=== PATIENT | female | born 1940 | race Caucasian/White ===

== ENCOUNTER 2016-10-26 23:27 | Inpatient (IN) ==
--- NOTE | 2016-10-26 23:30 | Emergency Department Note ---
Disposition Clinical Impression: RUQ abdominal pain, Acute cholecystitis Disposition: Admitted As Inpatient Condition: Fair General Adult HPI - General Chief complaint: ED Abdominal Pain Stated complaint: RUQ abd pain rad into back Time Seen by Provider: 10/26/16 23:29 - Related Data Home Medications Medication Instructions Recorded Confirmed Lisinopril [Zestril] 20 mg PO DAILY 10/27/16 10/27/16 raNITIdine HCl [Ranitidine HCl] 10/27/16 Allergies Allergy/AdvReac Type Severity Reaction Status Date / Time No Known Allergies Allergy Verified 10/26/16 23:34 Past Medical History - Past Medical History Medical history: Reports: arthritis, cancer, CHF, hyperlipidemia, hypertension Surgical history: Reports: hysterectomy Psychiatric history: Reports: no psych history - Social History Smoking Status: Never smoker Smokeless Tobacco Status: No Alcohol use: Reports: none Drug use: Reports: none Course Vital Signs Temperature 98.8 F 10/26/16 23:35 Pulse Rate 95 10/26/16 23:35 Respiratory Rate 20 10/26/16 23:35 Blood Pressure 232/96 10/26/16 23:35 O2 Sat by Pulse Oximetry 95 10/26/16 23:35 Temperature 98.8 F 10/27/16 02:50 Pulse Rate 83 10/27/16 05:43 Respiratory Rate 24 10/27/16 02:50 Blood Pressure 173/79 10/27/16 05:43 O2 Sat by Pulse Oximetry 92 10/27/16 02:50 Oxygen Delivery Oxygen Delivery Room Air Medical Decision Making - Lab Data Result diagrams: 10/26/16 23:53 10/26/16 23:53 Lab Results 10/26/16 10/26/16 10/26/16 Range/Units 23:53 23:53 23:53 WBC 13.3 H (4.3-11.1) K/mcL RBC 5.22 H (3.82-4.97) M/mcL Hgb 15.9 H (11.5-15.4) g/dL Hct 47.5 H (35.3-44.9) % MCV 91.0 (83.0-100.0) fL MCH 30.5 (28.0-33.3) pg MCHC 33.5 (31.6-35.5) g/dL RDW 12.5 (11.5-14.5) % Plt Count 207 (140-400) K/mcL MPV 9.8 (9.4-12.4) fL Immature Gran % 0.5 (0-4) % Seg Neutrophils % 83.6 % Lymphocytes % 10.2 % Monocytes % 5.4 % Eosinophils % 0.1 % Basophils % 0.2 % Neutrophils # 11.1 H (1.6-8.9) K/mcL Lymphocytes # 1.4 (0.6-4.6) K/mcL Monocytes # 0.7 (0.0-1.3) K/mcL Eosinophils # 0.0 (0.0-0.6) K/mcL Basophils # 0.0 (0.0-0.2) K/mcL Immature Plt Fraction 3.4 (1.1-6.1) % Sodium 135 L (136-145) mEq/L Potassium 4.3 (3.5-4.5) mEq/L Chloride 99 (98-109) mEq/L Carbon Dioxide 24 (19-29) mEq/L BUN 12 (7-20) mg/dL Creatinine 0.79 (0.57-1.11) mg/dL Est GFR ( Amer) > 60 (> 60) Est GFR (Non-Af Amer) > 60 (> 60) BUN/Creatinine Ratio 15 (6-26) Glucose 172 H (70-99) mg/dL Calculated Osmolality 284 (280-300) Calcium 10.1 (8.6-10.8) mg/dL Total Bilirubin 0.9 (0.2-1.2) mg/dL Direct Bilirubin 0.3 (0.0-0.5) mg/dL Indirect Bilirubin 0.6 (0.0-1.2) mg/dL AST 19 (5-34) Units/L ALT 17 (0-55) Units/L Alkaline Phosphatase 72 (38-126) Units/L Troponin I 0.01 (0-0.03) ng/mL Serum Total Protein 7.9 (6.0-8.3) g/dL Albumin 3.9 (3.5-5.0) g/dL Globulin 4.0 H (2.4-3.5) g/dL Albumin/Globulin Ratio 1.0 L (1.1-2.2) Lipase 15 (8-78) Units/L Urine Color (Yellow) Urine Clarity (Clear) Urine pH (5.0-8.0) pH Units Ur Specific [place] (1.010-1.025) Urine Protein (Neg-Trace) mg/dL Urine Glucose (UA) (Normal) mg/dL Urine Ketones (Negative) mg/dL Urine Blood (Negative) Urine Nitrite (Negative) Urine Bilirubin (Negative) Urine Urobilinogen (Normal) mg/dL Ur Leukocyte Esterase (Negative) Urine Microscopic RBC (0-3) per hpf Urine Microscopic WBC (0-3) per hpf Ur Squamous Epith Cells (None-Few) per lpf Urine Bacteria (None-Few) per hpf Hyaline Casts (None-Few) per lpf Ur Culture Indicated? (NO) 10/27/16 Range/Units 00:20 WBC (4.3-11.1) K/mcL RBC (3.82-4.97) M/mcL Hgb (11.5-15.4) g/dL Hct (35.3-44.9) % MCV (83.0-100.0) fL MCH (28.0-33.3) pg MCHC (31.6-35.5) g/dL RDW (11.5-14.5) % Plt Count (140-400) K/mcL MPV (9.4-12.4) fL Immature Gran % (0-4) % Seg Neutrophils % % Lymphocytes % % Monocytes % % Eosinophils % % Basophils % % Neutrophils # (1.6-8.9) K/mcL Lymphocytes # (0.6-4.6) K/mcL Monocytes # (0.0-1.3) K/mcL Eosinophils # (0.0-0.6) K/mcL Basophils # (0.0-0.2) K/mcL Immature Plt Fraction (1.1-6.1) % Sodium (136-145) mEq/L Potassium (3.5-4.5) mEq/L Chloride (98-109) mEq/L Carbon Dioxide (19-29) mEq/L BUN (7-20) mg/dL Creatinine (0.57-1.11) mg/dL Est GFR ( Amer) (> 60) Est GFR (Non-Af Amer) (> 60) BUN/Creatinine Ratio (6-26) Glucose (70-99) mg/dL Calculated Osmolality (280-300) Calcium (8.6-10.8) mg/dL Total Bilirubin (0.2-1.2) mg/dL Direct Bilirubin (0.0-0.5) mg/dL Indirect Bilirubin (0.0-1.2) mg/dL AST (5-34) Units/L ALT (0-55) Units/L Alkaline Phosphatase (38-126) Units/L Troponin I (0-0.03) ng/mL Serum Total Protein (6.0-8.3) g/dL Albumin (3.5-5.0) g/dL Globulin (2.4-3.5) g/dL Albumin/Globulin Ratio (1.1-2.2) Lipase (8-78) Units/L Urine Color Yellow (Yellow) Urine Clarity Clear (Clear) Urine pH 6.5 (5.0-8.0) pH Units Ur Specific [place] 1.022 (1.010-1.025) Urine Protein 100 H (Neg-Trace) mg/dL Urine Glucose (UA) Normal (Normal) mg/dL Urine Ketones Trace H (Negative) mg/dL Urine Blood Negative (Negative) Urine Nitrite Negative (Negative) Urine Bilirubin Negative (Negative) Urine Urobilinogen Normal (Normal) mg/dL Ur Leukocyte Esterase Negative (Negative) Urine Microscopic RBC 0-3 (0-3) per hpf Urine Microscopic WBC 0-3 (0-3) per hpf Ur Squamous Epith Cells Many H (None-Few) per lpf Urine Bacteria Few (None-Few) per hpf Hyaline Casts None Seen (None-Few) per lpf Ur Culture Indicated? NO (NO) Attestation Statement - Attestation Attestation: I examined this patient and my medical decision-making was reviewed with the [employer]/PA/Advanced Practice Nurse/Resident Physician. I agree with the documented findings, disposition and treatment plan as described except to the extent set forth below. [id number] time provided presents with right upper quadrant abdominal pain. Pain present for 2 days. Patient is cantankerous on exam. She was initially complaining about the bumpiness of the ambulance ride. Appears in no acute distress on exam
[2016-10-26] MEDS ORDERED: Ondansetron ODT 4 MG TAB.RAPDIS SL ONE (23:44)
--- NOTE | 2016-10-26 23:48 | Emergency Department Note ---
Disposition Clinical Impression: RUQ abdominal pain, Acute cholecystitis Disposition: Admitted As Inpatient Condition: Good Referrals: Shantanu Lu MD [Primary Care Provider] - Forms: ED Satisfaction Letter, Work/School Release Abdominal Pain HPI - General Chief Complaint: ED Abdominal Pain Stated Complaint: RUQ abd pain rad into back Time Seen by Provider: 10/26/16 23:29 Source: patient, EMS Nursing Notes Reviewed: Yes Vital Signs Reviewed: Yes - History of Present Illness HPI Narrative: 76-year-old female with a history of hypertension and previous cervical cancer with hysterectomy presents to the emergency department with a chief complaint of abdominal pain. She states it is in the right upper quadrant and radiates around the right side. She states that eating makes it worse. She was having symptoms after eating for the last 3 or 4 days but today it worsened. She has had no vomiting. She has had no diarrhea or blood in the stool. She has had no fevers or chills. Patient states she ate fried perch the other day and it made her symptoms worse. She has never had a cholecystectomy. She denies any chest pain or shortness of breath. Denies any new swelling in lower extremities. Denies any lightheadedness or passing out. Pain Scale: 10 - Related Data Home Medications Medication Instructions Recorded Confirmed Amiodarone [Cordarone] 200 mg PO DAILY 10/10/15 10/10/15 Aspirin 81 mg PO DAILY 10/10/15 10/10/15 LORazepam 10 mg PO DAILY PRN 10/10/15 10/10/15 Lisinopril 20 mg PO DAILY 10/10/15 10/10/15 Metoprolol 100 tab PO DAILY 10/10/15 10/10/15 Ranitidine 75 mg PO DAILY 10/10/15 10/10/15 Previous Rx's Medication Instructions Recorded Albuterol Sulfate [Ventolin Hfa] 18 gm IH Q4HR PRN #1 [email or web address] 10/11/15 Furosemide [Lasix] 20 mg PO DAILY #30 tablet 10/11/15 Allergies Allergy/AdvReac Type Severity Reaction Status Date / Time No Known Allergies Allergy Verified 10/26/16 23:34 All systems ED: reviewed and negative except as stated. Constitutional: Denies: fever, chills Cardiovascular: Denies: chest pain Respiratory: Denies: cough, dyspnea Gastrointestinal: Reports: abdominal pain, nausea. 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 S1, S2. No murmurs, rubs or gallops. Respiratory: Breath sounds clear bilaterally. No wheezing, rales or rhonchi. No resp distress Abdomen: Abdomen is soft without any guarding, rebound or rigidity. She does have some right upper quadrant tenderness as well as the right lateral abdomen but negative Cavazos sign. No focal right lower quadrant tenderness. No other tenderness elicited on examination without distention. Normal bowel sounds throughout. No overlying signs of injury. Previous midline surgical incision. No palpable organomegaly. Eyes: Left chronically injured eye, right eye is unremarkable HENT: Moist mucous membranes Neuro: Alert and oriented 3, no motor or sensory deficits Musculoskeletal: Bilateral, symmetric lower extremity swelling without edema. No calf tenderness. No signs of infection. Skin: No lesions. No diaphoresis. Normal turgor. Normal color Psych: Appropriate - General Limitations: no limitations General appearance: alert Course Course Narrative: Presents with 3-4 days of intermittent right upper quadrant abdominal pain that worsened today. On exam she has right upper quadrant tenderness without positive Cavazos sign. She is afebrile with stable vital signs. Labs reveal leukocytosis at 13.5. No elevation herpetic or lipase. CT scan shows some pericholecystic edema/swelling consistent with possible acute cholecystitis. This was relatively abrupt in symptomatology and may be early. Patient having significant discomfort. I discussed with the on-call surgeon, Dr. Horne who agrees to admit the patient. We will treat her symptoms in the meantime and she will be examined and reevaluated by the surgeon in the morning. Will start antibiotics. Patient will remain nothing by mouth with IV fluid maintenance rate. Vital Signs Temperature 98.8 F 10/26/16 23:35 Pulse Rate 95 10/26/16 23:35 Respiratory Rate 20 10/26/16 23:35 Blood Pressure 232/96 10/26/16 23:35 O2 Sat by Pulse Oximetry 95 10/26/16 23:35 Temperature 98.8 F 10/26/16 23:35 Pulse Rate 87 10/27/16 00:31 Respiratory Rate 20 10/27/16 00:31 Blood Pressure 211/90 10/27/16 00:31 O2 Sat by Pulse Oximetry 94 10/27/16 00:31 Oxygen Delivery Oxygen Delivery Room Air Abdominal Pain - Lab Data Result diagrams: 10/26/16 23:53 10/26/16 23:53 Lab Results 10/26/16 10/26/16 10/26/16 Range/Units 23:53 23:53 23:53 WBC 13.3 H (4.3-11.1) K/mcL RBC 5.22 H (3.82-4.97) M/mcL Hgb 15.9 H (11.5-15.4) g/dL Hct 47.5 H (35.3-44.9) % MCV 91.0 (83.0-100.0) fL MCH 30.5 (28.0-33.3) pg MCHC 33.5 (31.6-35.5) g/dL RDW 12.5 (11.5-14.5) % Plt Count 207 (140-400) K/mcL MPV 9.8 (9.4-12.4) fL Immature Gran % 0.5 (0-4) % Seg Neutrophils % 83.6 % Lymphocytes % 10.2 % Monocytes % 5.4 % Eosinophils % 0.1 % Basophils % 0.2 % Neutrophils # 11.1 H (1.6-8.9) K/mcL Lymphocytes # 1.4 (0.6-4.6) K/mcL Monocytes # 0.7 (0.0-1.3) K/mcL Eosinophils # 0.0 (0.0-0.6) K/mcL Basophils # 0.0 (0.0-0.2) K/mcL Immature Plt Fraction 3.4 (1.1-6.1) % Sodium 135 L (136-145) mEq/L Potassium 4.3 (3.5-4.5) mEq/L Chloride 99 (98-109) mEq/L Carbon Dioxide 24 (19-29) mEq/L BUN 12 (7-20) mg/dL Creatinine 0.79 (0.57-1.11) mg/dL Est GFR ( Amer) > 60 (> 60) Est GFR (Non-Af Amer) > 60 (> 60) BUN/Creatinine Ratio 15 (6-26) Glucose 172 H (70-99) mg/dL Calculated Osmolality 284 (280-300) Calcium 10.1 (8.6-10.8) mg/dL Total Bilirubin 0.9 (0.2-1.2) mg/dL Direct Bilirubin 0.3 (0.0-0.5) mg/dL Indirect Bilirubin 0.6 (0.0-1.2) mg/dL AST 19 (5-34) Units/L ALT 17 (0-55) Units/L Alkaline Phosphatase 72 (38-126) Units/L Troponin I 0.01 (0-0.03) ng/mL Serum Total Protein 7.9 (6.0-8.3) g/dL Albumin 3.9 (3.5-5.0) g/dL Globulin 4.0 H (2.4-3.5) g/dL Albumin/Globulin Ratio 1.0 L (1.1-2.2) Lipase 15 (8-78) Units/L Urine Color (Yellow) Urine Clarity (Clear) Urine pH (5.0-8.0) pH Units Ur Specific [place] (1.010-1.025) Urine Protein (Neg-Trace) mg/dL Urine Glucose (UA) (Normal) mg/dL Urine Ketones (Negative) mg/dL Urine Blood (Negative) Urine Nitrite (Negative) Urine Bilirubin (Negative) Urine Urobilinogen (Normal) mg/dL Ur Leukocyte Esterase (Negative) Urine Microscopic RBC (0-3) per hpf Urine Microscopic WBC (0-3) per hpf Ur Squamous Epith Cells (None-Few) per lpf Urine Bacteria (None-Few) per hpf Hyaline Casts (None-Few) per lpf Ur Culture Indicated? (NO) 10/27/16 Range/Units 00:20 WBC (4.3-11.1) K/mcL RBC (3.82-4.97) M/mcL Hgb (11.5-15.4) g/dL Hct (35.3-44.9) % MCV (83.0-100.0) fL MCH (28.0-33.3) pg MCHC (31.6-35.5) g/dL RDW (11.5-14.5) % Plt Count (140-400) K/mcL MPV (9.4-12.4) fL Immature Gran % (0-4) % Seg Neutrophils % % Lymphocytes % % Monocytes % % Eosinophils % % Basophils % % Neutrophils # (1.6-8.9) K/mcL Lymphocytes # (0.6-4.6) K/mcL Monocytes # (0.0-1.3) K/mcL Eosinophils # (0.0-0.6) K/mcL Basophils # (0.0-0.2) K/mcL Immature Plt Fraction (1.1-6.1) % Sodium (136-145) mEq/L Potassium (3.5-4.5) mEq/L Chloride (98-109) mEq/L Carbon Dioxide (19-29) mEq/L BUN (7-20) mg/dL Creatinine (0.57-1.11) mg/dL Est GFR ( Amer) (> 60) Est GFR (Non-Af Amer) (> 60) BUN/Creatinine Ratio (6-26) Glucose (70-99) mg/dL Calculated Osmolality (280-300) Calcium (8.6-10.8) mg/dL Total Bilirubin (0.2-1.2) mg/dL Direct Bilirubin (0.0-0.5) mg/dL Indirect Bilirubin (0.0-1.2) mg/dL AST (5-34) Units/L ALT (0-55) Units/L Alkaline Phosphatase (38-126) Units/L Troponin I (0-0.03) ng/mL Serum Total Protein (6.0-8.3) g/dL Albumin (3.5-5.0) g/dL Globulin (2.4-3.5) g/dL Albumin/Globulin Ratio (1.1-2.2) Lipase (8-78) Units/L Urine Color Yellow (Yellow) Urine Clarity Clear (Clear) Urine pH 6.5 (5.0-8.0) pH Units Ur Specific [place] 1.022 (1.010-1.025) Urine Protein 100 H (Neg-Trace) mg/dL Urine Glucose (UA) Normal (Normal) mg/dL Urine Ketones Trace H (Negative) mg/dL Urine Blood Negative (Negative) Urine Nitrite Negative (Negative) Urine Bilirubin Negative (Negative) Urine Urobilinogen Normal (Normal) mg/dL Ur Leukocyte Esterase Negative (Negative) Urine Microscopic RBC 0-3 (0-3) per hpf Urine Microscopic WBC 0-3 (0-3) per hpf Ur Squamous Epith Cells Many H (None-Few) per lpf Urine Bacteria Few (None-Few) per hpf Hyaline Casts None Seen (None-Few) per lpf Ur Culture Indicated? NO (NO) - EKG Data EKG results narrative: EKG shows sinus tachycardia with a rate of [address] elevation. Mild ST depression, less than 1 mm in precordial leads. T-wave inversion in 1 and aVL..
[2016-10-27 00:02] LABS: Basophils % 0.2 %; Eosinophils % 0.1 %; Hematocrit 47.5 % (35.3-44.9); Hemoglobin 15.9 g/dL (11.5-15.4); Immature Granulocytes % 0.5 % (0-4); Immature Platelets 3.4 % (1.1-6.1); Lymphocytes # 1.4 K/mcL (0.6-4.6); Lymphocytes % 10.2 %; Mean Corpuscular HGB Conc 33.5 g/dL (31.6-35.5); Mean Corpuscular Hemoglobin 30.5 pg (28.0-33.3); Mean Platelet Volume 9.8 fL (9.4-12.4); Monocytes # 0.7 K/mcL (0.0-1.3); Monocytes % 5.4 %; Neutrophils # 11.1 K/mcL (1.6-8.9); Platelet Count 207 K/mcL (140-400); Red Blood Count 5.22 M/mcL (3.82-4.97); Red Cell Distribution Width 12.5 % (11.5-14.5); Segmented Neutrophils % 83.6 %
[2016-10-27 00:17] LABS: Alanine Aminotransferase 17 Units/L (0-55); Albumin 3.9 g/dL (3.5-5.0); Alkaline Phosphatase 72 Units/L (38-126); Aspartate Amino Transferase 19 Units/L (5-34); BUN/Creatinine Ratio 15 (6-26); Bilirubin,Direct 0.3 mg/dL (0.0-0.5); Bilirubin,Indirect 0.6 mg/dL (0.0-1.2); Bilirubin,Total 0.9 mg/dL (0.2-1.2); Blood Urea Nitrogen 12 mg/dL (7-20); Calcium 10.1 mg/dL (8.6-10.8); Carbon Dioxide 24 mEq/L (19-29); Chloride 99 mEq/L (98-109); Glucose 172 mg/dL (70-99); Lipase 15 Units/L (8-78); Osmolality,Calculated 284 (280-300); Potassium 4.3 mEq/L (3.5-4.5); Sodium 135 mEq/L (136-145); Total Protein 7.9 g/dL (6.0-8.3); eGFR For African Americans > 60 (> 60); eGFR For Non-African Americans > 60 (> 60)
[2016-10-27 00:37] LABS: Bilirubin,Urine Negative (Negative); Blood,Urine Negative (Negative); Clarity,Urine Clear (Clear); Color,Urine Yellow (Yellow); Glucose,Urine (UA) Normal (Normal); Ketones,Urine Trace mg/dL (Negative); Leukocyte Esterase,Urine Negative (Negative); Nitrite,Urine Negative (Negative); PH,Urine 6.5 pH Units (5.0-8.0); Protein,Urine 100 mg/dL (Neg-Trace); Specific Gravity,Urine 1.022 (1.010-1.025); Urobilinogen,Urine Normal (Normal)
[2016-10-27 00:38] LABS: Bacteria,Urine Few per hpf (None-Few); Hyaline Casts,Urine None Seen per lpf (None-Few); RBC,Urine 0-3 per hpf (0-3); Squamous Epithelial Cell,Urine Many per lpf (None-Few); WBC,Urine 0-3 per hpf (0-3)
[2016-10-27] MEDS ORDERED: *HR* HYDROmorphone (PF) 1 MG/ML SYRINGE IVP ONE (01:34)
[2016-10-27] MEDS ORDERED: Ondansetron 4 MG/2 ML VIAL IVP STA (01:34)
[2016-10-27] MEDS ORDERED: 0.9 % Sodium Chloride 1,000 ML IVC SCH ×2 (01:45→05:09)
[2016-10-27] MEDS ORDERED: Ondansetron 4 MG/2 ML VIAL IVP PRN (05:06)
[2016-10-27] MEDS ORDERED: Lisinopril 20 MG TABLET PO SCH (05:15)
[2016-10-27] MEDS: *HR* Morphine 2 MG/ML SYRINGE IVP PRN ×2 (05:45→09:12)
[2016-10-27 08:14] LABS: Basophils % 0.1 %; Hematocrit 45.3 % (35.3-44.9); Immature Granulocytes % 0.4 % (0-4); Lymphocytes # 1.4 K/mcL (0.6-4.6); Lymphocytes % 9.4 %; Mean Corpuscular HGB Conc 33.1 g/dL (31.6-35.5); Mean Corpuscular Hemoglobin 30.5 pg (28.0-33.3); Mean Corpuscular Volume 92.1 fL (83.0-100.0); Monocytes # 1.3 K/mcL (0.0-1.3); Monocytes % 8.7 %; Platelet Count 186 K/mcL (140-400); Red Blood Count 4.92 M/mcL (3.82-4.97); Red Cell Distribution Width 12.7 % (11.5-14.5); Segmented Neutrophils % 81.4 %
[2016-10-27 08:27] LABS: Alanine Aminotransferase 13 Units/L (0-55); Albumin 3.5 g/dL (3.5-5.0); Albumin/Globulin Ratio 0.9 (1.1-2.2); Alkaline Phosphatase 61 Units/L (38-126); Aspartate Amino Transferase 15 Units/L (5-34); BUN/Creatinine Ratio 17 (6-26); Bilirubin,Direct 0.2 mg/dL (0.0-0.5); Bilirubin,Indirect 0.5 mg/dL (0.0-1.2); Bilirubin,Total 0.7 mg/dL (0.2-1.2); Blood Urea Nitrogen 12 mg/dL (7-20); Calcium 9.7 mg/dL (8.6-10.8); Carbon Dioxide 27 mEq/L (19-29); Chloride 99 mEq/L (98-109); Globulin 3.9 g/dL (2.4-3.5); Glucose 125 mg/dL (70-99); Osmolality,Calculated 281 (280-300); Potassium 4.4 mEq/L (3.5-4.5); Sodium 135 mEq/L (136-145); Total Protein 7.4 g/dL (6.0-8.3); eGFR For African Americans > 60 (> 60); eGFR For Non-African Americans > 60 (> 60)
[2016-10-27] MEDS ORDERED: Naloxone 0.4 MG/ML INJ IVP PRN ×2 (08:40→18:35)
[2016-10-27] MEDS ORDERED: Pantoprazole 40 MG VIAL IVP SCH (09:00)
[2016-10-27] MEDS: cefOXitin 2,000 MG in D5% in Water (Mini-Bag+) 100 ML IVPB SCH ×3 (09:09→23:36)
--- NOTE | 2016-10-27 09:47 | General Surg History&Physical ---
<Michela Lloyd - Last Filed: 10/27/16 09:42> Date of Encounter: 10/27/16 Time of Encounter: 09:43 Assessment and Plan (1) Acute cholecystitis Current Visit: Yes Status: Acute Patient presents with 3-4 days of right upper quadrant abdominal pain that radiates to the back. It has worsened yesterday. She has an elevated white count at 14.7 with a left shift. CT of the abdomen shows small gallstones or gallbladder sludge, slight pericholecystic edema, findings suggest possible cholecystitis. Abdomen is soft, nondistended with tenderness to palpation of the right upper quadrant. Bowel sounds are present. Patient complains of nausea and 10/10 pain, denies any other complaints. Plan: -Keep NPO -Cholecystectomy later today -IVF, Mefoxin 2gm q8hrs, Protonix, Zofran, morphine -Monitor I/Os -IS q1hr when awake -VS q4hr -AM labs The assessment and plan as outlined above was discussed with the patient and/or family members who expressed understanding and agreement. All questions were answered. (2) Adrenal nodule Current Visit: Yes Status: Acute CT of the abdomen revealed a 2 cm right adrenal lesion of indeterminate cause. A repeat assessment with adrenal protocol is recommended in approximately 12 months to assess stability. Plan: -Patient will require further workup as an outpatient for the adrenal nodule. The assessment and plan as outlined above was discussed with the patient and/or family members who expressed understanding and agreement. All questions were answered. (3) Hypertension Current Visit: Yes Status: Acute Blood pressures have been elevated at 200 and above systolic. They are currently controlled in the 170s, 160s systolic. Plan: -Continue lisinopril 20 mg daily -20mg hydralazine IV every 6 hours as needed for SBP > 160 The assessment and plan as outlined above was discussed with the patient and/or family members who expressed understanding and agreement. All questions were answered. Qualifiers: Hypertension type: essential hypertension Qualified Code(s): I10 - Essential (primary) hypertension (4) DVT prophylaxis Current Visit: Yes Status: Acute ICDs The assessment and plan as outlined above was discussed with the patient and/or family members who expressed understanding and agreement. All questions were answered. History of Present Illness Chief complaint: RUQ abdominal Pain HPI: Ms. Vasquez is a 76 year old female with a PMH of HTN, uterine cancer with total hysterectomy who presented to the emergency department last evening complaining of right upper quadrant abdominal pain. She states that the pain has been going on for 3-4 days after eating, however it worsened yesterday morning at 0400. She states that it is worse after she eats food, especially greasy and fatty foods. It also is worse when she takes deep breaths and movements. It improves when she states. She has also been experiencing nausea but has not vomited. She states that she has also felt feverish. She states that she normally has swelling in both lower extremities. She denies chills, headache, dizziness, cough, wheezing, chest pain, shortness of breath, diarrhea, constipation, dysuria. She states that she has had a total hysterectomy, but no other surgeries. She has not had any problems with anesthesia, bleeding disorders, clotting disorders. 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 Past Med Surg Social Fam HX - Past Medical History Medical history: arthritis, cancer (Uterine), hyperlipidemia, hypertension Psychiatric history: no psych history - Past Surgical History Surgical History: hysterectomy - Social History Smoking Status: Never smoker Smokeless Tobacco Status: No Alcohol use: none Drug use: none Current living situation: Home, With Family Activity Level: Independent ambulation, Uses cane/walker Recent Out of Country Travel Within the Last 8 Weeks: No Exposure or Possible Exposure to Illness During Travel: No - Family History Mother Hx Family Cardiac Disorders: Yes (CONGESTIVE HEART FAILURE.) Medications and Allergies Albuterol Sulfate [Ventolin Hfa] 2 puff IH Q4H PRN 10/27/16 [History] Aspirin [Ecotrin] 325 mg PO DAILY 10/27/16 [History] Lisinopril [Zestril] 20 mg PO DAILY 10/27/16 [History] raNITIdine HCl [Ranitidine HCl] 150 mg PO BID 10/27/16 [History] Allergies No Known Allergies Allergy (Verified 10/26/16 23:34) Review of Systems All systems PM: A 10-system review of systems was performed and is negative for pertinent findings except as documented above in the HPI. - Constitutional fever(s), no chills, no headache(s) - EENT Nose, mouth and throat: no dizziness, no headache(s) - Cardiovascular edema, no chest pain, no diaphoresis, no dyspnea, no palpitations, no syncope - Respiratory no cough, no dyspnea, no wheezing - Gastrointestinal abdominal pain, heartburn, nausea, no constipation, no diarrhea, no loose stools , no melena, no vomiting - Genitourinary Menstruation: post hysterectomy - Musculoskeletal arthralgias - Integumentary no rash - Neurological no dizziness, no headache(s) - Psychiatric no anxiety, no depression - Endocrine no palpitations - Hematologic/Lymphatic no easy bleeding, no easy bruising General Surgery Exam Initial Vital Signs Temp Pulse Resp BP Pulse Ox 98.8 F 95 20 232/96 95 10/26/16 23:35 10/26/16 23:35 10/26/16 23:35 10/26/16 23:35 10/26/16 23:35 - General physical appearance well developed, well nourished, no distress, moderate pain, obese - Eyes PERRL, normal ocular movement right lesions (Left eye blindness, S/P retinal detachment) - ENT normal pinna, normal nares, normal mucosa, no congestion, atraumatic, normocephalic - Neck no masses, trachea midline, no lymphadectomy, no venous distension - Respiratory normal expansion, normal respiratory effort, clear to auscultation - Cardiovascular Cardiovascular exam: Present: RRR, no murmurs/rubs/gallops - Abdomen Abdomen general surgery: Present: bowel sounds present, soft, tender Abdominal Tenderness: Present: RUQ - Integumentary Integumentary general surgery: Present: warm and dry, no abnormal pigmentation. Absent: diaphoresis, rash - Neurologic Present: CN 2-12 grossly intact, normal coordination, normal sensation - Psychiatric Psychiatric general surgery: Present: A&Ox3, appropriate, oriented to person, oriented to place, oriented to time, speech is normal, memory intact Results - Labs 10/27/16 08:03 10/27/16 08:03 Short CBC 10/27/16 10/26/16 Range/Units 08:03 23:53 WBC 14.7 H 13.3 H (4.3-11.1) K/mcL Hgb 15.0 15.9 H (11.5-15.4) g/dL Hct 45.3 H 47.5 H (35.3-44.9) % Plt Count 186 207 (140-400) K/mcL Neutrophils # 12.0 H 11.1 H (1.6-8.9) K/mcL BMP 10/27/16 10/26/16 Range/Units 08:03 23:53 Sodium 135 L 135 L (136-145) mEq/L Potassium 4.4 4.3 (3.5-4.5) mEq/L Chloride 99 99 (98-109) mEq/L Carbon Dioxide 27 24 (19-29) mEq/L BUN 12 12 (7-20) mg/dL Creatinine 0.72 0.79 (0.57-1.11) mg/dL Glucose 125 H 172 H (70-99) mg/dL Calcium 9.7 10.1 (8.6-10.8) mg/dL Cardiac Enzymes 10/26/16 Range/Units 23:53 Troponin I 0.01 (0-0.03) ng/mL Liver Function 10/27/16 10/26/16 Range/Units 08:03 23:53 Total Bilirubin 0.7 0.9 (0.2-1.2) mg/dL Direct Bilirubin 0.2 0.3 (0.0-0.5) mg/dL AST 15 19 (5-34) Units/L ALT 13 17 (0-55) Units/L Alkaline Phosphatase 61 72 (38-126) Units/L Albumin 3.5 3.9 (3.5-5.0) g/dL Urine 10/27/16 Range/Units 00:20 Urine Color Yellow (Yellow) Urine Clarity Clear (Clear) Urine pH 6.5 (5.0-8.0) pH Units Ur Specific [place] 1.022 (1.010-1.025) Urine Protein 100 H (Neg-Trace) mg/dL Urine Glucose (UA) Normal (Normal) mg/dL - Imaging CT scan - abdomen: report reviewed, image reviewed Additional studies: Abdomen/Pelvis CT 10/27/16 23:45 IMPRESSION: 1. Small gallstones or gallbladder sludge. Slight pericholecystic edema. Findings are suggestive of possible cholecystitis. 2. 2.0 cm right adrenal lesion of indeterminate cause. Consider further assessment with adrenal protocol CT in approximately 12 months to assess stability. D/ / Augustine Oneil MD / Augustine Oneil MD Interpreting Provider: Augustine Oneil MD <Yisel Horne - Last Filed: 10/27/16 15:23> Date of Encounter: 10/27/16 Time of Encounter: 12:30 Assessment and Plan (1) Leukocytosis Current Visit: Yes Status: Acute The assessment and plan as outlined above was discussed with the patient and/or family members who expressed understanding and agreement. All questions were answered. due to inflammation, continue abx plan OR today Qualifiers: Leukocytosis type: unspecified Qualified Code(s): D72.829 - Elevated white blood cell count, unspecified (2) Acute cholecystitis Current Visit: Yes Status: Acute The assessment and plan as outlined above was discussed with the patient and/or family members who expressed understanding and agreement. All questions were answered. discussed CT results with patient, labs, and physical findings, will plan laparoscopic cholecystectomy, possible cholangiograms possible open, risks and benefits discussed and she wishes to proceed. npo prn pain control ivfh abx (3) Adrenal nodule Current Visit: Yes Status: Acute The assessment and plan as outlined above was discussed with the patient and/or family members who expressed understanding and agreement. All questions were answered. will have patient follow up with pcp or endocrinoloogy History of Present Illness HPI: Ms. Vasquez is a 76 year old female with ~4 days of RUQ pain, sharp without radiation. She has nausea without emesis. The pain became so bad last night she went to the ED where CT scan was done showing stones and a little pericholecystic fluid, elevated wbc and normal lfts. She denies fevers, chills or night sweats. No Diarrhea. Past Med Surg Social Fam HX - Past Medical History Source: patient Review of Systems All systems PM: reviewed and no additional remarkable complaints except as stated All systems PM: A 10-system review of systems was performed and is negative for pertinent findings except as documented above in the HPI. General Surgery Exam Initial Vital Signs Temp Pulse Resp BP Pulse Ox 98.8 F 95 20 232/96 95 10/26/16 23:35 10/26/16 23:35 10/26/16 23:35 10/26/16 23:35 10/26/16 23:35 - General physical appearance well nourished, no distress, moderate pain, obese - Eyes PERRL, normal ocular movement - ENT normal mucosa, normocephalic - Respiratory normal expansion, clear to auscultation - Cardiovascular Cardiovascular exam: Present: RRR, no murmurs/rubs/gallops - Abdomen Abdomen general surgery: Present: bowel sounds present, soft, tender. Absent: distended, guarding, rebound Abdominal Tenderness: Present: RUQ - Integumentary Integumentary general surgery: Present: warm and dry, no abnormal pigmentation - Neurologic Present: CN 2-12 grossly intact - Musculoskeletal Present: normal posture - Psychiatric Psychiatric general surgery: Present: A&Ox3, speech is normal Results - Labs 10/27/16 08:03 10/27/16 08:03 Short CBC 10/27/16 10/26/16 Range/Units 08:03 23:53 WBC 14.7 H 13.3 H (4.3-11.1) K/mcL Hgb 15.0 15.9 H (11.5-15.4) g/dL Hct 45.3 H 47.5 H (35.3-44.9) % Plt Count 186 207 (140-400) K/mcL Neutrophils # 12.0 H 11.1 H (1.6-8.9) K/mcL BMP 10/27/16 10/26/16 Range/Units 08:03 23:53 Sodium 135 L 135 L (136-145) mEq/L Potassium 4.4 4.3 (3.5-4.5) mEq/L Chloride 99 99 (98-109) mEq/L Carbon Dioxide 27 24 (19-29) mEq/L BUN 12 12 (7-20) mg/dL Creatinine 0.72 0.79 (0.57-1.11) mg/dL Glucose 125 H 172 H (70-99) mg/dL Calcium 9.7 10.1 (8.6-10.8) mg/dL Cardiac Enzymes 10/26/16 Range/Units 23:53 Troponin I 0.01 (0-0.03) ng/mL Liver Function 10/27/16 10/26/16 Range/Units 08:03 23:53 Total Bilirubin 0.7 0.9 (0.2-1.2) mg/dL Direct Bilirubin 0.2 0.3 (0.0-0.5) mg/dL AST 15 19 (5-34) Units/L ALT 13 17 (0-55) Units/L Alkaline Phosphatase 61 72 (38-126) Units/L Albumin 3.5 3.9 (3.5-5.0) g/dL Urine 10/27/16 Range/Units 00:20 Urine Color Yellow (Yellow) Urine Clarity Clear (Clear) Urine pH 6.5 (5.0-8.0) pH Units Ur Specific [place] 1.022 (1.010-1.025) Urine Protein 100 H (Neg-Trace) mg/dL Urine Glucose (UA) Normal (Normal) mg/dL Vital Signs Temp Pulse Resp BP Pulse Ox 10/27/16 12:53 97.4 F L 79 18 137/61 99 10/27/16 09:10 92 10/27/16 07:18 97.8 F 83 18 164/67 92 10/27/16 05:43 83 173/79 10/27/16 02:50 98.8 F 78 24 171/76 92 10/27/16 02:17 20 189/88 10/27/16 01:30 74 20 223/100 94 10/27/16 01:15 80 20 187/101 94 10/27/16 00:31 87 20 211/90 94 10/27/16 00:24 93 10/27/16 00:15 92 20 200/81 93 10/27/16 00:00 112 20 216/112 93 10/26/16 23:45 97 20 230/103 93 10/26/16 23:35 98.8 F 95 20 232/96 95 Intake and Output 10/26/16 10/27/16 10/27/16 23:59 07:59 15:59 Intake Total 100 / 100 Balance 100 / 100 Intake: IV Fluids 100 / 100 Mefoxin 2,000 MG In 100 / 100 Dextrose 5% (Minibag+) 100 ML 100 ML @ 200 mls/ hr IVPB Q8HR [facility] Rx#: [id number] Other: Meal NPO FOR LUNCH Percent of Meal Consumed 0% Stool Characteristics Normal for Patient Stool Color Brown # Urine Diapers 1 Weight 95.254 kg 98.968 kg Patient Weight 10/27/16 23:59 Weight 98.968 kg - Imaging CT scan - abdomen: report reviewed, image reviewed CT scan - pelvis: report reviewed, image reviewed - Attending Attestation I examined this patient and my medical decision-making was reviewed with the OUTSIDE PHYSICAL DAMAGE APPRAISER/PA/Advanced Practice Nurse/Resident Physician. I agree with the documented findings, disposition and treatment plan as described except to the extent set forth below.
[2016-10-27 10:35] LABS: INR 1.1; Prothrombin Time 12.3 Seconds (9.4-12.1)
--- NOTE | 2016-10-27 14:39 | Anesthesia Evaluation PreOp ---
<Shantanu Robert - Last Filed: 10/27/16 14:37> Date of Encounter: 10/27/16 Time of Encounter: 14:37 - Past History Planned Operation: Lap. Pavithra Cardiac History: HTN, Hyperlipidemia Other Medical History: Other (Adrenal nodule, uterine CA) Anesthesia History: Past Anesthesia (BENITEZ) : No Alcohol Use: none Drug use: none Medications and Allergies Albuterol Sulfate [Ventolin Hfa] 2 puff IH Q4H PRN 10/27/16 [History] Aspirin [Ecotrin] 325 mg PO DAILY 10/27/16 [History] Lisinopril [Zestril] 20 mg PO DAILY 10/27/16 [History] raNITIdine HCl [Ranitidine HCl] 150 mg PO BID 10/27/16 [History] Allergies No Known Allergies Allergy (Verified 10/26/16 23:34) - Meds/Allergy Pre-op Review Medications Reviewed: Yes Allergies Reviewed: Yes Beta Blockers on Current Med List: No Anesthesia Results - Labs 10/27/16 08:03 10/27/16 08:03 - Imaging EKG: image reviewed (SB) Anesthesia Exam O2 Sat Height 1.57 m Height 1.57 m Weight 98.968 kg Weight 95.254 kg O2 Sat by Pulse Oximetry 99 O2 Sat by Pulse Oximetry 92 O2 Sat by Pulse Oximetry 92 O2 Sat by Pulse Oximetry 92 O2 Sat by Pulse Oximetry 94 O2 Sat by Pulse Oximetry 94 O2 Sat by Pulse Oximetry 94 O2 Sat by Pulse Oximetry 93 O2 Sat by Pulse Oximetry 93 O2 Sat by Pulse Oximetry 93 O2 Sat by Pulse Oximetry 93 O2 Sat by Pulse Oximetry 95 Vital Signs Temp Pulse Resp BP Pulse Ox 98.8 F 95 20 232/96 95 10/26/16 23:35 10/26/16 23:35 10/26/16 23:35 10/26/16 23:35 10/26/16 23:35 Height: 5'2'' Weight: 218# NPO (# of Hours): > 8 HRS Pain Scale: 0 Pain Scale Used: Numeric (1 - 10) Anesthesia Assess/Plan ASA Score: 2 Modified Mary Scale for Level of Consciousness: Asleep with no response Autologous Blood: Yes Monitoring Plan: Standard Monitors Recovery Plan: PACU <María Stovall - Last Filed: 10/27/16 15:02> Date of Encounter: 10/27/16 - Past History Pulmonary History: Denies Any Significant HX BOILERMAKER MECHANIC History: Denies Any Significant HX Anesthesia Results - Labs 10/27/16 08:03 10/27/16 08:03 - Imaging Additional studies: TTE: LVEF 60% normal LV size/function mod diastolic function dilated RV with normal function calcified aortic leaflets without aortic stenosis mod pulm htn IVC is not dilated Anesthesia Exam - HEENT Pupil (Motor): Pupils equal, EOMI Mallampati: III Teeth: Edentulous Oral Opening: Greater than 3 - BOILERMAKER MECHANIC LOC: Oriented BOILERMAKER MECHANIC Motor: Normal RUE, Normal LUE, Normal RLE, Normal LLE, Normal Face - Cardiac Rhythm: Regular Murmur: Systolic - Pulmonary Breath Sounds: bilateral Clear Respiratory Effort: Symmetrical Anesthesia Assess/Plan Modified Mary Scale for Level of Consciousness: Cooperative, oriented, and tranquil
[2016-10-27] MEDS ORDERED: *HR* FentaNYL (PF) 100 MCG/2 ML VIAL ONE ×2 (15:33→15:34)
[2016-10-27] MEDS ORDERED: Lidocaine -MPF 4% 5 ML AMPUL ONE (15:33)
[2016-10-27] MEDS ORDERED: Ondansetron 4 MG/2 ML VIAL ONE (15:33)
[2016-10-27] MEDS ORDERED: *HR* Propofol 200 MG/20 ML VIAL IVP ONE (15:33)
[2016-10-27] MEDS ORDERED: *HR* Rocuronium Bromide 50 MG/5 ML VIAL ONE (15:33)
[2016-10-27] MEDS ORDERED: *HR* Succinylcholine 200 MG/10 ML VIAL IVP ONE (15:33)
[2016-10-27] MEDS ORDERED: Dexamethasone 4 MG/ML VIAL ONE (15:33)
[2016-10-27] MEDS ORDERED: Neostigmine Methylsulfate 3 MG/3 ML SYRINGE ONE (15:33)
[2016-10-27] MEDS ORDERED: CefOXitin 2,000 MG VIAL IVPB ONE (15:49)
[2016-10-27] MEDS ORDERED: EPHEDrine 50 MG/ML VIAL ONE (15:52)
[2016-10-27] MEDS ORDERED: *HR* HYDROmorphone (PF) 1 MG/ML SYRINGE IVP PRN (16:03)
[2016-10-27] MEDS ORDERED: Ondansetron 4 MG/2 ML VIAL IVP ONE (16:03)
[2016-10-27] MEDS ORDERED: *HR* Labetalol 100 MG/20 ML MDV IVP PRN (16:03)
[2016-10-27] MEDS ORDERED: *HR* Morphine 10 MG/ML VIAL ONE (17:17)
[2016-10-27] MEDS ORDERED: Ipratropium/Albuterol Neb 3 ML ONE (17:20)
--- NOTE | 2016-10-27 17:21 | Operative Note ---
Date of procedure: 10/27/16 Pre-op diagnosis: acute cholecystitis Post-op diagnosis: same Procedure: laparoscopic cholecystectomy Complications: none immediate Anesthesia: GETA, local Local Anesthetics: 0.5% Sensorcaine HCL SubQ (cc) (30) Surgeon: Yisel Horne Laser Operator Other: Maninder Gilliland Estimated blood loss (cc): 25 IV fluids (cc): 1,000 Specimen: gallbladder and contents Condition: stable Disposition: PACU Procedure in Detail: Patient was brought into the operating suite and placed supine on the operating table. Sign in was performed and everyone was in agreement. Anesthesia was induced and patient was endotracheally intubated by anesthesia without incident. The abdomen was prepped and draped in the usual sterile fashion. Timeout was performed again everyone was in agreement. An incision in the left upper quadrant through the skin into the subcutaneous tissues made with an 11 blade. Veress needle was placed through this and a water drop test confirmed placement and the abdomen was insufflated. Abdomen was entered with a 5 mm 0 degree laparoscope on a 5 mm excel trocar. The area under entry was visualized and there was no apparent bowel injury or bleeding. The super umbilical incision through the skin and the subcutaneous tissue with a 11 blade was done in a 12 mm port placed through this under direct visualization. A 5 mm port was placed in the subxiphoid position under direct there is placed and after first incising the skin with 11 blade. 2 more 5 mm ports were placed in the right upper quadrant subxiphoid position, anterior axillary line and midclavicular line, under direct visualization after first incising the skin with 11 blade. The patient was placed in reverse Trendelenburg left side down. The patient had a very large left lobe of the liver which fell right in front of the lower part of the gallbladder and portal triad. This was elevated with a laparoscopic DeBakey throughout the case. The gallbladder was extremely tense and was unable to be grasped with the grasper. The gallbladder was decompressed with the last laparoscopic aspirator and the patient had hydrops of the gallbladder. The dome of the gallbladder was grasped and retracted cephalad and the infundibulum was grasped and retracted laterally. The patient had significant induration and inflammation at the distal gallbladder and the cystic duct, cystic artery, palak hepatis. Using the Bovie we opened up the gallbladder peritoneum medially and laterally. The cystic artery was dissected out with the [place] and 25 mm hemoclips were placed proximally on the cystic artery one distally was transected with curved scissors. Area of the cystic duct was extremely thick and it appeared with retraction to be tenting the common. The 5 mm subxiphoid port was exchanged for a 12 mm port. The area immediately beneath the infundibulum was transected with a flex ex ETS stapler using a blue load. The gallbladder is removed off the cystic plate with the Bovie. The gallbladder was placed in a laparoscopic Endo Catch bag and removed from the subxiphoid port site. The cystic plate was irrigated with sterile saline. Any bleeding points were stopped with the Bovie. After the inflammation, friability, and a little bit of bleeding from the cystic plate a 10 mm ROXANNE drain was placed into the right upper quadrant and out the right lateral most port site. The ROXANNE drain was secured to the skin with a 2-0 silk stitch. All irrigation was suctioned free from the abdomen. Insufflation was evacuated and the trochars removed. The 212 mm port sites were closed at the abdominal wall with an 0 Vicryl [id number] stitch. The skin at the two 12 mm port sites were closed with 4-0 Monocryl running subcuticular stitch. The skin at the left upper quadrant and right upper quadrant 5 mm port sites were closed with 4-0 Monocryl interrupted stitches. Steri-Strips and Mastisol were applied to the incisions and drain sponge was placed at the ROXANNE drain site and secured to the skin with tape. The patient tolerated the procedure well. All lap and ensuring counts are correct at the end of the case. Patient was awoken in the operating suite and extubated by anesthesia without incident, she was taken to PACU in stable condition.
--- NOTE | 2016-10-27 17:32 | Electrocardiograph Report ---
[place] [id number] Test Date: 2016-10-26 Pat Name: Emelia Vasquez Department: 104 Room: 3B44 Gender: F Special Needs Nanny: SKYE : 1940 Requested By: Migue Christensen Order Number: [id number] Reading MD: Tracey Verde Measurements Intervals [place] Rate: 102 P: 76 VA: 168 QRS: -28 QRSD: 98 T: 127 QT: 309 QTc: 368 Interpretive Statements SINUS TACHYCARDIA BORDERLINE LEFT AXIS DEVIATION LEFT VENTRICULAR HYPERTROPHY AND ST-T CHANGE Electronically Signed On 10-27-2016 17:30:40 EDT by Tracey Verde
--- NOTE | 2016-10-27 18:24 | Anesthesia Evaluation Post Op ---
Date of Encounter: 10/27/16 Time of Encounter: 18:24 - Vital Signs Vital Signs: Vital Signs/O2 Sat, Most Current Temp Pulse Resp BP Pulse Ox 97.0 F L 96 20 142/56 91 10/27/16 17:48 10/27/16 18:08 10/27/16 18:08 10/27/16 18:08 10/27/16 18:08 - Lungs Lungs: Clear Ascult./Percussion - Airway Airway: Non-obstructed - Cardiovascular Regular Rate - Mental Status Mental Status: Alert & Oriented, Answers Appropriately - Pain Pain Scale: 5 Pain Scale used: Numeric (1 - 10) - Nausea Vomiting Nausea Vomiting: Not Present - Hydration Hydration: Ice chips, Has not voided - Discharge PostOp Status: Transfer Patient to floor
[2016-10-27] MEDS ORDERED: *HR* Morphine 2 MG/ML SYRINGE IVP PRN (18:35)
[2016-10-27] MEDS: *HR* OxyCODONE/APAP 5/325 TABLET PO PRN (20:07)
[2016-10-27] MEDS: 0.9 % Sodium Chloride 1,000 ML IVC SCH (20:10)
[2016-10-27] MEDS: Ipratropium/Albuterol Neb 3 ML IH SCH (21:19)
[2016-10-28] MEDS: Ipratropium/Albuterol Neb 3 ML IH SCH ×4 (03:51→21:35)
[2016-10-28 06:50] LABS: Basophils % 0.2 %; Hematocrit 41.5 % (35.3-44.9); Immature Granulocytes % 0.4 % (0-4); Lymphocytes % 8.4 %; Mean Corpuscular Hemoglobin 30.4 pg (28.0-33.3); Mean Corpuscular Volume 94.7 fL (83.0-100.0); Mean Platelet Volume 10.3 fL (9.4-12.4); Monocytes % 11.7 %; Platelet Count 186 K/mcL (140-400); Red Blood Count 4.38 M/mcL (3.82-4.97); Red Cell Distribution Width 13.2 % (11.5-14.5); Segmented Neutrophils % 79.3 %
[2016-10-28 06:51] LABS: Lymphocytes # 0.9 K/mcL (0.6-4.6); Monocytes # 1.3 K/mcL (0.0-1.3); Neutrophils # 8.9 K/mcL (1.6-8.9)
[2016-10-28 06:52] LABS: Hemoglobin 13.3 g/dL (11.5-15.4)
[2016-10-28 07:02] LABS: Albumin/Globulin Ratio 0.7 (1.1-2.2); Bilirubin,Direct 0.3 mg/dL (0.0-0.5); Bilirubin,Indirect 0.5 mg/dL (0.0-1.2); Bilirubin,Total 0.8 mg/dL (0.2-1.2); Globulin 4.4 g/dL (2.4-3.5); Total Protein 7.4 g/dL (6.0-8.3)
[2016-10-28 07:30] LABS: Potassium 4.4 mEq/L (3.5-4.5)
[2016-10-28] MEDS: *HR* OxyCODONE/APAP 5/325 TABLET PO PRN ×2 (08:13→22:46)
[2016-10-28] MEDS: cefOXitin 2,000 MG in D5% in Water (Mini-Bag+) 100 ML IVPB SCH ×2 (08:14→15:12)
[2016-10-28] MEDS: Pantoprazole 40 MG VIAL IVP SCH (08:14)
[2016-10-28] MEDS: Lisinopril 20 MG TABLET PO SCH (08:14)
--- NOTE | 2016-10-28 08:33 | General Surgery Progress Note ---
Date of Encounter: 10/28/16 Time of Encounter: 17:00 - Assessment and Plan (1) Acute cholecystitis Current Visit: Yes Status: Acute POD#[address] Horne. Patient has diffuse postoperative abdominal tenderness, her pain is much improved. She denies bowel movements but has had flatus and belching. She denies nausea Abdomen soft and mildly tender. Sounds present. ROXANNE drain in place with serosanguineous drainage. She has had 70 mL output from the drain. Plan: -Clear liquid diet - advance to regular if tolerates -Mefoxin 2gm Q8hr -IVF, SLIV once intake adequate -Pain control and supportive care -Vital signs, I/Os -IS every hour while awake -Drain care -continue oxygen via nc and wean as tolerate OOB (2) Adrenal nodule Current Visit: Yes Status: Acute CT of the abdomen revealed a 2 cm right adrenal lesion of indeterminate cause. A repeat assessment with adrenal protocol is recommended in approximately 12 months to assess stability. Plan: -Patient will require further workup as an outpatient for the adrenal nodule. (3) Hypertension Current Visit: Yes Status: Chronic Blood pressure is more controlled in the 130s and 140s systolic. Plan: -Continue lisinopril 20 mg daily -20mg hydralazine IV every 6 hours as needed for SBP > 160 Qualifiers: Hypertension type: essential hypertension Qualified Code(s): I10 - Essential (primary) hypertension (4) DVT prophylaxis Current Visit: Yes Status: Acute Subjective Narrative: The patient was seen and examined. She states that she has diffuse abdominal pain postoperatively, however the pain that she experienced prior is much improved. She has not had a bowel movement, she is belching and passed gas yesterday. She denies nausea or any other complaints. She still complains of epigastric and RUQ discomfort and states she is sore. She tolerated clears and has no nausea. She has not passed flatus. She hasnt been out of bed. Objective Vital Signs - Last 8 Hours Temp Pulse Resp BP Pulse Ox 10/28/16 08:10 97 10/28/16 07:04 99.3 F 70 17 149/63 97 10/28/16 03:51 18 95 10/28/16 03:36 98.5 F 102 17 116/61 94 Intake and Output 10/27/16 10/28/16 10/28/16 23:59 07:59 15:59 Intake Total 100 / 100 Output Total 45 / 45 50 / 50 Balance -45 / -45 50 / 50 Intake: IV Fluids 100 / 100 Mefoxin 2,000 MG In 100 / 100 Dextrose 5% (Minibag+) 100 ML 100 ML @ 200 mls/ hr IVPB Q8HR [facility] Rx#: [id number] Output: Urine 0 / 0 Estimated Blood Loss / Wound Drainage 50 / 50 Right Abdomen 50 / 50 Other: # Urine Diapers 1 Weight 105.687 kg Patient Weight 10/28/16 23:59 Weight 105.687 kg - General physical appearance well developed, well nourished, no distress, moderate pain, obese - 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) - ENT dry mucosa, atraumatic, normocephalic - Neck Neck exam: trachea midline - Respiratory normal expansion, normal respiratory effort, clear to auscultation - Cardiovascular Cardiovascular exam: Present: RRR, murmurs - Abdomen Abdomen: Present: bowel sounds present, soft, tender (Normal postop) Abdominal Tenderness: RUQ, diffusely Additional Comments: ROXANNE drain in place in the right upper abdomen, serosanguineous drainage - Incision Incision: Present: clean and dry, intact - Integumentary no rash, no growths, no abnormal pigmentation - Neurologic CN 2-12 grossly intact, normal coordination, normal sensation - Musculoskeletal normal posture - Psychiatric oriented to time, oriented to person, oriented to place, speech is normal, memory intact - Labs 10/29/16 03:25 10/29/16 03:35 Short CBC 10/28/16 Range/Units 04:56 WBC 11.2 H (4.3-11.1) K/mcL Hgb 13.3 D (11.5-15.4) g/dL Hct 41.5 (35.3-44.9) % Plt Count 186 (140-400) K/mcL Neutrophils # 8.9 (1.6-8.9) K/mcL BMP 10/28/16 Range/Units 04:56 Sodium 136 (136-145) mEq/L Potassium 4.4 (3.5-4.5) mEq/L Chloride 100 (98-109) mEq/L Carbon Dioxide 25 (19-29) mEq/L BUN 18 (7-20) mg/dL Creatinine 1.10 D (0.57-1.11) mg/dL Glucose 138 H (70-99) mg/dL Calcium 9.0 (8.6-10.8) mg/dL Liver Function 10/28/16 Range/Units 04:56 Total Bilirubin 0.8 (0.2-1.2) mg/dL Direct Bilirubin 0.3 (0.0-0.5) mg/dL AST 110 H (5-34) Units/L ALT 68 H (0-55) Units/L Alkaline Phosphatase 55 (38-126) Units/L Albumin 3.0 L (3.5-5.0) g/dL - VTE Documentation of Mechanical Device: Intermittent pneumatic compression device Consult Discharge Plan - Plan Referrals: Zackary Mendoza MD [Non-Partnered Physician] - 11/05/16 3:00 pm - Attending Attestation Yisel Horne MD I examined this patient and my medical decision-making was reviewed with the IMMIGRATION CONSULTANT/PA/Advanced Practice Nurse/Resident Physician. I agree with the documented findings, disposition and treatment plan as described except to the extent set forth below.
[2016-10-28] MEDS ORDERED: Lisinopril 20 MG TABLET PO SCH (09:00)
[2016-10-28] MEDS: 0.9 % Sodium Chloride 1,000 ML IVC SCH (15:11)
[2016-10-28] MEDS: Ondansetron 4 MG/2 ML VIAL IVP PRN (19:35)
[2016-10-29] MEDS: cefOXitin 2,000 MG in D5% in Water (Mini-Bag+) 100 ML IVPB SCH ×3 (00:53→16:14)
[2016-10-29 03:40] LABS: Basophils % 0.2 %; Eosinophils # 0.1 K/mcL (0.0-0.6); Eosinophils % 0.7 %; Hematocrit 37.8 % (35.3-44.9); Hemoglobin 12.5 g/dL (11.5-15.4); Immature Granulocytes % 0.4 % (0-4); Lymphocytes # 1.5 K/mcL (0.6-4.6); Lymphocytes % 16.3 %; Mean Corpuscular HGB Conc 33.1 g/dL (31.6-35.5); Mean Corpuscular Volume 93.8 fL (83.0-100.0); Mean Platelet Volume 9.9 fL (9.4-12.4); Monocytes # 1.1 K/mcL (0.0-1.3); Monocytes % 12.2 %; Neutrophils # 6.3 K/mcL (1.6-8.9); Platelet Count 155 K/mcL (140-400); Red Blood Count 4.03 M/mcL (3.82-4.97); Red Cell Distribution Width 13.2 % (11.5-14.5); Segmented Neutrophils % 70.2 %
[2016-10-29] MEDS: Ipratropium/Albuterol Neb 3 ML IH SCH ×4 (04:16→21:31)
[2016-10-29 05:51] LABS: Alanine Aminotransferase 65 Units/L (0-55); Albumin 2.7 g/dL (3.5-5.0); Albumin/Globulin Ratio 0.7 (1.1-2.2); Alkaline Phosphatase 51 Units/L (38-126); Aspartate Amino Transferase 80 Units/L (5-34); BUN/Creatinine Ratio 16 (6-26); Bilirubin,Total 0.7 mg/dL (0.2-1.2); Blood Urea Nitrogen 13 mg/dL (7-20); Calcium 8.9 mg/dL (8.6-10.8); Carbon Dioxide 26 mEq/L (19-29); Chloride 102 mEq/L (98-109); Globulin 3.8 g/dL (2.4-3.5); Glucose 104 mg/dL (70-99); Osmolality,Calculated 286 (280-300); Potassium 4.4 mEq/L (3.5-4.5); Sodium 138 mEq/L (136-145); Total Protein 6.5 g/dL (6.0-8.3); eGFR For African Americans > 60 (> 60); eGFR For Non-African Americans > 60 (> 60)
[2016-10-29] MEDS: Pantoprazole 40 MG VIAL IVP SCH (09:46)
[2016-10-29] MEDS: Lisinopril 20 MG TABLET PO SCH (09:46)
[2016-10-29] MEDS: Ondansetron 4 MG/2 ML VIAL IVP PRN (12:16)
--- NOTE | 2016-10-29 13:27 | General Surgery Progress Note ---
Date of Encounter: 10/29/16 Time of Encounter: 18:01 - Assessment and Plan (1) Acute cholecystitis Current Visit: Yes Status: Acute POD#[address] Horne. Patient has diffuse postoperative abdominal tenderness, her pain is much worse. She denies bowel movements but has had flatus and belching. She endorses nausea with multiple episodes of vomiting on herself this morning. She has been up to chair today once but does not feel like ambulating further. Abdomen soft and mildly tender. Sounds present. ROXANNE drain in place with serosanguineous drainage. She has had 24 mL output from the drain yesterday and 30 ml today with small amount of fluid that spilled approx 5 ml. Temperature 100.7 High with episodes of fevers/chills. "Feeling awful today, pain is worse." Plan: regular diet dc mefoxin tomorrow SLIV po pain control PT refusing pt/ot eval pt not a candidate to go home as family has stated they will not be able to take care of her, consult SW for NH placement -Drain care OOB (2) Adrenal nodule Current Visit: Yes Status: Acute CT of the abdomen revealed a 2 cm right adrenal lesion of indeterminate cause. A repeat assessment with adrenal protocol is recommended in approximately 12 months to assess stability. Plan: -Patient will require further workup as an outpatient for the adrenal nodule. (3) Hypertension Current Visit: Yes Status: Chronic Blood pressure is more controlled in the 180s and 140s systolic. Plan: -Continue lisinopril 20 mg daily -20mg hydralazine IV every 6 hours as needed for SBP > 160 Qualifiers: Hypertension type: essential hypertension Qualified Code(s): I10 - Essential (primary) hypertension (4) DVT prophylaxis Current Visit: Yes Status: Acute (5) GERD (gastroesophageal reflux disease) Current Visit: Yes Status: Chronic restart home ranitidine Qualifiers: Esophagitis presence: esophagitis presence not specified Qualified Code(s) : K21.9 - Gastro-esophageal reflux disease without esophagitis Subjective Patient reports: feels better, still having pain, pain is less, tolerating a regular diet, flatus, no bowel movement, bowel movement, nausea, fever (100.7 as high, with episodes of sweating/chills) Narrative: The patient was seen and examined. She states that she has abdominal pain that is much worse from yesterday diffusely distributed. Patient is belching on exam. However, patient states that she has not had a bowel movement or passed gas overnight. Patient reports that she is hungry and is uncertain on how to have a bowel movement when she is "not eating anything ". Patient is irritable and states that she is feeling "terrible". Patient has been up to bed and out to the chair however she has not ambulated further than the chair. Patient states that she had nausea this morning with multiple episodes of vomiting on herself. Objective Vital Signs - Last 8 Hours Temp Pulse Resp BP Pulse Ox 10/29/16 11:04 98.3 F 89 17 171/74 94 10/29/16 07:54 97.8 F 100 17 149/49 92 Intake and Output 10/28/16 10/29/16 10/29/16 23:59 07:59 15:59 Intake Total 100 / 100 240 / 240 Output Total 400 / 400 Balance -300 / -300 240 / 240 Intake: IV Fluids 100 / 100 Mefoxin 2,000 MG In 100 / 100 Dextrose 5% (Minibag+) 100 ML 100 ML @ 200 mls/ hr IVPB Q8HR [facility] Rx#: [id number] Oral 240 / 240 Output: Urine 400 / 400 Other: Meal Breakfast Percent of Meal Consumed 10% # Urine Diapers 1 1 - General physical appearance well developed, well nourished, no distress, moderate pain, obese - Eyes other, PERRL (eye blind) - ENT normal pinna, normal nares, dry mucosa, atraumatic, normocephalic - Neck Neck exam: trachea midline, no venous distension - Respiratory normal expansion, normal respiratory effort, clear to auscultation - Cardiovascular Cardiovascular exam: Present: RRR, murmurs - Abdomen Abdomen: Present: bowel sounds present, soft, tender (appropriate post op tenderness) Abdominal Tenderness: diffusely Additional Comments: ROXANNE in place in Right upper abdomen. Serosanguineous drainage - Incision Incision: Present: clean and dry, intact - Integumentary no rash, no abnormal pigmentation - Neurologic normal coordination, normal sensation - Musculoskeletal normal posture - Psychiatric oriented to time, oriented to person, oriented to place, speech is normal, memory intact - Labs 10/29/16 03:25 10/29/16 03:35 Short CBC 10/29/16 Range/Units 03:25 WBC 9.0 (4.3-11.1) K/mcL Hgb 12.5 (11.5-15.4) g/dL Hct 37.8 (35.3-44.9) % Plt Count 155 (140-400) K/mcL Neutrophils # 6.3 (1.6-8.9) K/mcL BMP 10/29/16 Range/Units 03:35 Sodium 138 (136-145) mEq/L Potassium 4.4 (3.5-4.5) mEq/L Chloride 102 (98-109) mEq/L Carbon Dioxide 26 (19-29) mEq/L BUN 13 (7-20) mg/dL Creatinine 0.81 (0.57-1.11) mg/dL Glucose 104 H (70-99) mg/dL Calcium 8.9 (8.6-10.8) mg/dL Liver Function 10/29/16 Range/Units 03:35 Total Bilirubin 0.7 (0.2-1.2) mg/dL AST 80 H (5-34) Units/L ALT 65 H (0-55) Units/L Alkaline Phosphatase 51 (38-126) Units/L Albumin 2.7 L (3.5-5.0) g/dL Vital Signs Temp Pulse Resp BP Pulse Ox 10/29/16 15:21 98.8 F 104 18 147/118 93 10/29/16 11:04 98.3 F 89 17 171/74 94 10/29/16 07:54 97.8 F 100 17 149/49 92 10/29/16 03:01 99.2 F 85 16 152/68 97 10/28/16 22:29 99.7 F H 98 18 181/73 95 10/28/16 21:36 16 95 10/28/16 20:00 95 10/28/16 18:43 100.7 F H 104 16 166/60 96 Intake and Output 10/29/16 10/29/16 10/29/16 07:59 15:59 23:59 Intake Total 100 / 100 340 / 340 Output Total 400 / 400 420 / 420 Balance -300 / -300 320 / 320 -420 / -420 Intake: IV Fluids 100 / 100 100 / 100 Mefoxin 2,000 MG In 100 / 100 100 / 100 Dextrose 5% (Minibag+) 100 ML 100 ML @ 200 mls/ hr IVPB Q8HR [facility] Rx#: [id number] Oral 240 / 240 Output: Urine 400 / 400 Stool 400 / 400 Wound Drainage Right Abdomen Other: Meal Breakfast Percent of Meal Consumed 10% Stool Size Small Moderate Stool Consistency soft loose liquid Stool Characteristics Normal for Patient Stool Color Black Brown # Urine Diapers 1 1 # Bowel Movements 1 - VTE Documentation of Mechanical Device: Intermittent pneumatic compression device Consult Discharge Plan - Plan Referrals: Zackary Mendoza MD [Non-Partnered Physician] - 11/05/16 3:00 pm - Attending Attestation I examined this patient and my medical decision-making was reviewed with the TOOL GRINDER OPERATOR SURFACE/PA/Advanced Practice Nurse/Resident Physician. I agree with the documented findings, disposition and treatment plan as described except to the extent set forth below.
[2016-10-29] MEDS: Famotidine 20 MG TABLET PO SCH (19:56)
[2016-10-29] MEDS: *HR* OxyCODONE/APAP 5/325 TABLET PO PRN (21:31)
[2016-10-30] MEDS: cefOXitin 2,000 MG in D5% in Water (Mini-Bag+) 100 ML IVPB SCH ×2 (00:16→08:04)
[2016-10-30] MEDS: Ipratropium/Albuterol Neb 3 ML IH SCH ×3 (03:56→15:44)
[2016-10-30 05:05] LABS: Albumin 2.5 g/dL (3.5-5.0); Albumin/Globulin Ratio 0.6 (1.1-2.2); Bilirubin,Direct 0.3 mg/dL (0.0-0.5); Bilirubin,Indirect 0.4 mg/dL (0.0-1.2); Bilirubin,Total 0.7 mg/dL (0.2-1.2); Globulin 3.9 g/dL (2.4-3.5); Total Protein 6.4 g/dL (6.0-8.3)
[2016-10-30 07:14] VITALS: BP 137/79
[2016-10-30] MEDS: Famotidine 20 MG TABLET PO SCH (08:03)
[2016-10-30] MEDS: Lisinopril 20 MG TABLET PO SCH (08:03)
--- NOTE | 2016-10-30 09:18 | General Surgery Progress Note ---
Date of Encounter: 10/30/16 Time of Encounter: 09:21 - Assessment and Plan (1) Acute cholecystitis Current Visit: Yes Status: Acute POD#3 [address] with Dr[address] Horne. Patient denies abdominal tenderness, is having bowel movements and flatus. She denies nausea Abdomen soft and non-tender. Bowel Sounds present. She is passing gas and having BMs. ROXANNE drain in place with minimal serosanguineous drainage. She denies declining physical therapy, discussed with her the need to be evaluated. Will need to be evaluated for rehab placement, she states she will get up with PT/OT today. She prefers [place] and then [facility]. Will DC ROXANNE drain today. Plan: -continue regular diet -SLIV -Pain control and supportive care -Vital signs, I/Os -IS every hour while awake -PT/OT - patient refused evaluation yesterday, discussed wiht patient that if she refuses to be evaluated by PT our only option is [facility] in senior care, she has agreed to see PT/OT for [facility] placement as family stated they cannot take her home. -OOB -continue oxygen via nc and wean as tolerated (2) Adrenal nodule Current Visit: Yes Status: Acute CT of the abdomen revealed a 2 cm right adrenal lesion of indeterminate cause. A repeat assessment with adrenal protocol is recommended in approximately 12 months to assess stability. Plan: -Patient will require further workup as an outpatient for the adrenal nodule. (3) Hypertension Current Visit: Yes Status: Chronic Blood pressure is more controlled in the 130s and 140s systolic. Plan: -Continue lisinopril 20 mg daily -20mg hydralazine IV every 6 hours as needed for SBP > 160 Qualifiers: Hypertension type: essential hypertension Qualified Code(s): I10 - Essential (primary) hypertension (4) DVT prophylaxis Current Visit: Yes Status: Acute (5) Physical deconditioning Current Visit: Yes Status: Chronic PT/OT evaluation for rehab placement Subjective Patient reports: no new complaints, feels better, pain is less, tolerating liquids well, afebrile Narrative: She was seen and examined. She states that she is having no pain, no nausea. She is having bowel movements and bladder. She states that she has up to a chair. She is tolerating a regular diet however she states that it is "too dry." Objective Vital Signs - Last 8 Hours Temp Pulse Resp BP Pulse Ox 10/30/16 07:09 97.9 F 84 16 137/79 93 10/30/16 02:46 97.9 F 86 18 162/71 90 Intake and Output 10/29/16 10/30/16 10/30/16 23:59 07:59 15:59 Intake Total 100 / 100 220 / 220 Output Total 420 / 420 55 / 55 Balance -320 / -320 165 / 165 Intake: IV Fluids 100 / 100 100 / 100 Mefoxin 2,000 MG In 100 / 100 100 / 100 Dextrose 5% (Minibag+) 100 ML 100 ML @ 200 mls/ hr IVPB Q8HR [facility] Rx#: [id number] Oral 120 / 120 Output: Stool 400 / 400 Wound Drainage Right Abdomen Other: Stool Size Moderate Small Small Stool Consistency loose loose soft liquid soft Stool Characteristics Seedy Stool Color Brown Brown Brown # Voids 1 # Bowel Movements 1 # Bowel Movement Diapers 1 1 1 Weight 100.471 kg Patient Weight 10/30/16 23:59 Weight 100.471 kg - General physical appearance well developed, well nourished, no distress, no pain, obese - Eyes PERRL - ENT normal mucosa, atraumatic, normocephalic - Neck Neck exam: trachea midline - Respiratory normal expansion, normal respiratory effort, clear to auscultation - Cardiovascular Cardiovascular exam: Present: RRR, no murmurs/rubs/gallops - Abdomen Abdomen: Present: bowel sounds present, soft, non tender, tender (minimal appropriate post op tenderness) Additional Comments: drain in place, right abdomen, minimal serosanguinous drainage - Incision Incision: Present: clean and dry, intact - Integumentary no rash, no growths, no abnormal pigmentation - Neurologic normal coordination, normal sensation - Musculoskeletal normal posture - Psychiatric oriented to time, oriented to person, oriented to place, speech is normal, memory intact - Labs 10/29/16 03:25 10/29/16 03:35 Liver Function 10/30/16 Range/Units 03:46 Total Bilirubin 0.7 (0.2-1.2) mg/dL Direct Bilirubin 0.3 (0.0-0.5) mg/dL AST 40 H (5-34) Units/L ALT 48 (0-55) Units/L Alkaline Phosphatase 50 (38-126) Units/L Albumin 2.5 L (3.5-5.0) g/dL Vital Signs Temp Pulse Resp BP Pulse Ox 10/30/16 07:09 97.9 F 84 16 137/79 93 10/30/16 02:46 97.9 F 86 18 162/71 90 10/29/16 23:01 97.8 F 88 20 145/73 91 10/29/16 20:00 91 10/29/16 18:48 99.9 F H 101 16 148/78 91 10/29/16 15:21 98.8 F 104 18 147/118 93 10/29/16 11:04 98.3 F 89 17 171/74 94 Intake and Output 10/29/16 10/30/16 10/30/16 23:59 07:59 15:59 Intake Total 100 / 100 220 / 220 Output Total 420 / 420 55 / 55 Balance -320 / -320 165 / 165 Intake: IV Fluids 100 / 100 100 / 100 Mefoxin 2,000 MG In 100 / 100 100 / 100 Dextrose 5% (Minibag+) 100 ML 100 ML @ 200 mls/ hr IVPB Q8HR [facility] Rx#: [id number] Oral 120 / 120 Output: Stool 400 / 400 Wound Drainage 55 / 55 Right Abdomen 55 55 Other: Stool Size Moderate Small Small Stool Consistency loose loose soft liquid soft Stool Characteristics Seedy Stool Color Brown Brown Brown # Voids 1 # Bowel Movements 1 # Bowel Movement Diapers 1 1 1 Weight 100.471 kg Patient Weight 10/30/16 23:59 Weight 100.471 kg - VTE Documentation of Mechanical Device: Intermittent pneumatic compression device Consult Discharge Plan - Plan Referrals: Zackary Mendoza MD [Non-Partnered Physician] - 11/05/16 3:00 pm (needs appt for followup for adrenal nodule) - Attending Attestation I examined this patient and my medical decision-making was reviewed with the DRAGGER OUT/PA/Advanced Practice Nurse/Resident Physician. I agree with the documented findings, disposition and treatment plan as described except to the extent set forth below.
--- NOTE | 2016-10-30 10:25 | Physician Discharge Referral ---
ExtendedCare Referral Info Transfer To: [facility] Provider in Charge: Dr. Yisel Horne Provider in Charge after Transfer: Other (Dr. Yisel Horne) Institutional Level of Care: [facility] Expected Duration of Placement: less than 30 days Prognosis: Good Aware of Diagnosis: Patient Aware of Prognosis: Patient - Transfer Medications Prescriptions: OxyCODONE/APAP 5/325 [Percocet 5/325 MG] 1 each PO Q4HR PRN #30 tablet PRN Reason: Pain Ondansetron ODT [Zofran ODT] 4 mg SL Q6HR PRN #30 tab.rapdis PRN Reason: Nausea Docusate [Colace] 100 mg PO BID #30 capsule Home Medications: Albuterol Sulfate [Ventolin Hfa] 2 puff IH Q4H PRN 10/27/16 [History] Aspirin [Ecotrin] 325 mg PO DAILY 10/27/16 [History] Lisinopril [Zestril] 20 mg PO DAILY 10/27/16 [History] raNITIdine HCl [Ranitidine HCl] 150 mg PO BID 10/27/16 [History] Docusate [Colace] 100 mg PO BID #30 capsule 10/30/16 [Rx] Ondansetron ODT [Zofran ODT] 4 mg SL Q6HR PRN #30 tab.rapdis 10/30/16 [Rx] OxyCODONE/APAP 5/325 [Percocet 5/325 MG] 1 each PO Q4HR PRN #30 tablet 10/30/16 [Rx] Allergies/Adverse Reactions: Allergies No Known Allergies Allergy (Verified 10/26/16 23:34) - Respiratory Orders None - Ancillary Orders May use pressure relief devices daily prn, May go on NOLAN w/family/respon libertarian w /meds at nurse discretion PRN, May consult with Dentist, Sales Representative [employer], Support Specialist PRN - Advance Directives Code Status: Full Code - Mobility Orders Chair, Ambulate - Rehabiliation Orders Rehab Potential: Good Rehab Orders: ROM Exercises, Evaluation for Physical Therapy, Evaluation for Occupational Therapy - Treatments Skin tear care topically daily PRN per policy List/Other: #1 may shower, no tub bath for 2 weeks #2 wash incisions with soap and water and pat dry daily. Apply dry dressing to right sided drain tube site until scabbed over. #3 no lifting, pushing, pulling more than 15 pounds for the next 2 weeks #4 no driving until off narcotics for 24 hours and able to safely react in the car #5 may climb stairs - Diet Orders Regular CERTIFICATION: I certify that the transfer of the above named patient to an Extended Care Facility is necessary for the continuing treatment of the diagnosis listed. The above information is true and accurate reflection of patient's current condition. Confidential - Redisclosure prohibited without a patient's written consent.
--- NOTE | 2016-10-30 10:36 | Discharge Summary ---
Date of Encounter: 10/30/16 Time of Encounter: 10:30 - Discharge Diagnosis (1) Acute cholecystitis Priority: Primary Status: Resolved (2) Adrenal nodule Priority: Secondary Status: Chronic (3) GERD (gastroesophageal reflux disease) Priority: Secondary Status: Chronic Qualifiers: Esophagitis presence: esophagitis presence not specified Qualified Code(s) : K21.9 - Gastro-esophageal reflux disease without esophagitis (4) Hypertension Priority: Secondary Status: Chronic Qualifiers: Hypertension type: essential hypertension Qualified Code(s): I10 - Essential (primary) hypertension (5) Physical deconditioning Priority: Secondary Status: Acute (6) Morbid obesity with BMI of 40.0-44.9, adult Priority: Secondary Status: Chronic - Discharge Medications Prescriptions: OxyCODONE/APAP 5/325 [Percocet 5/325 MG] 1 each PO Q4HR PRN #30 tablet PRN Reason: Pain Ondansetron ODT [Zofran ODT] 4 mg SL Q6HR PRN #30 tab.rapdis PRN Reason: Nausea Docusate [Colace] 100 mg PO BID #30 capsule Home Medications: Albuterol Sulfate [Ventolin Hfa] 2 puff IH Q4H PRN 10/27/16 [History] Aspirin [Ecotrin] 325 mg PO DAILY 10/27/16 [History] Lisinopril [Zestril] 20 mg PO DAILY 10/27/16 [History] raNITIdine HCl [Ranitidine HCl] 150 mg PO BID 10/27/16 [History] Docusate [Colace] 100 mg PO BID #30 capsule 10/30/16 [Rx] Ondansetron ODT [Zofran ODT] 4 mg SL Q6HR PRN #30 tab.rapdis 10/30/16 [Rx] OxyCODONE/APAP 5/325 [Percocet 5/325 MG] 1 each PO Q4HR PRN #30 tablet 10/30/16 [Rx] Allergies/Adverse Reactions: Allergies No Known Allergies Allergy (Verified 10/26/16 23:34) General Surgery Exam Initial Vital Signs Temp Pulse Resp BP Pulse Ox 98.8 F 95 20 232/96 95 10/26/16 23:35 10/26/16 23:35 10/26/16 23:35 10/26/16 23:35 10/26/16 23:35 - General physical appearance well developed, well nourished, no distress - Eyes normal ocular movement - ENT normal mucosa, atraumatic, normocephalic - Neck trachea midline - Respiratory normal respiratory effort, clear to auscultation - Cardiovascular Cardiovascular exam: Present: RRR - Abdomen Abdomen general surgery: Present: bowel sounds present, soft, tender (expected post-operative tenderness), wound (ROXANNE to SD with serousang. drainage noted) - Incision Incision: Present: clean and dry, intact - Integumentary Integumentary general surgery: Present: warm and dry - Neurologic Present: CN 2-12 grossly intact - Musculoskeletal Present: other (moderate physical deconditioning) - Psychiatric Psychiatric general surgery: Present: appropriate, oriented to person, oriented to place, oriented to time, speech is normal, memory intact Date of admission: 10/29/16 15:30 Primary care physician: Shantanu Lu MD Consults: 10/29/16 17:58 Consult to Escrow Assistant [CONS] Routine Reason for SW Consult: pt unrealistic about expectations for DC and is asking for us to set up for people to come to her house daily to clean and take care of her, she is refusing PT/OT eval, she in my opinion is unable to go home, please refer to assisted Discharging clinician: Yisel Horne ([facility]) Anticipated date of discharge: 10/30/16 - Patient Status Disposition: Transfer Inpatient Rehab Fac Condition: Good Functional capacity at discharge: independent ambulation Overall status at discharge: patient is progressing back to baseline - Discharge Instructions Follow Up With: Zackary Mendoza MD [Non-Partnered Physician] - 11/05/16 3:00 pm (needs appt for followup for adrenal nodule) Yisel Horne MD [Partnered Physician] - 11/12/16 8:55 am (surgery follow-up ) Additional Instructions: #1 may shower, no tub bath for 2 weeks #2 wash incisions with soap and water and pat dry daily. Apply dry dressing to right sided drain tube site until scabbed over #3 no lifting, pushing, pulling more than 15 pounds for the next 2 weeks #4 no driving until off narcotics for 24 hours and able to safely react in the car #5 may climb stairs - Diet and Activity Activity: as per physical therapy Diet: regular diet - Hospital Course Hospital course: Ms. Vasquez is a 76 year old female presented to the hospital with complaints of RUQ abdominal pain with associated nausea and vomiting. Patient was found to have acute cholecystitis. She was placed on IV antibiotics and supportive care. She was taken to the operating room for a laparoscopic cholecystectomy with Dr. Horne and was found to have gangrenous/necrotic gallbladder. She did have an elevation in her LFTs post-operatively. She was continued on IV antibiotics and IV fluid support. She did have a surgical drain left in place which is draining a small amount of serousangeous drainage. Her labs are now trending towards normal. Her vital signs are stable and she is afebrile. She is voiding without difficulty. She is experiencing physicial deconditioning and weakness. PT/OT have been consulted and are recommending short term rehab for strengthening. We will begin discharge planning and plan for outpatient follow-up in the next 10- 14 days. Surgical drain will be removed prior to discharge from the hospital. - Time Spent with Patient Total time spent providing and/or coordinating discharge services: Greater than 30 minutes Labs on day of discharge: Labs from last 24 hours 10/30/16 03:46 Total Bilirubin 0.7 Direct Bilirubin 0.3 Indirect Bilirubin 0.4 AST 40 H ALT 48 Alkaline Phosphatase 50 Serum Total Protein 6.4 Albumin 2.5 L Globulin 3.9 H Albumin/Globulin Ratio 0.6 L - Attending Attestation I examined this patient and my medical decision-making was reviewed with the WELLNESS MANAGER/PA/Advanced Practice Nurse/Resident Physician. I agree with the documented findings, disposition and treatment plan as described except to the extent set forth below.
[2016-10-30] MEDS: Ondansetron 4 MG/2 ML VIAL IVP PRN (14:24)
== END 2016-10-30 18:30 | DRG 418 ==
LOC: EMEROO 23:27 → 3BNU 23:27
PROVIDERS: ADMIT Surgery; ATTEND Surgery

== ENCOUNTER 2017-10-21 07:05 | Inpatient (IN) ==
--- NOTE | 2017-10-21 07:21 | Emergency Department Note ---
Disposition Clinical Impression: Atrial fibrillation with RVR Congestive heart failure Qualifiers: Heart failure type: unspecified Heart failure chronicity: acute on chronic Qualified Code(s): I50.9 - Heart failure, unspecified Disposition: Admitted As Inpatient Referrals: Lara Gordon CNP [Primary Care Provider] - Forms: ED Satisfaction Letter Time of Disposition: 09:05 SOB HPI - General Chief Complaint: ED Shortness of Breath/Dyspnea Stated Complaint: SOB Time Seen by Provider: 10/21/17 07:19 Source: patient, family Limitations: no limitations Nursing Notes Reviewed: Yes Vital Signs Reviewed: Yes - History of Present Illness This is a 77 year-old female with history of HTN, atrial fibrillation, and uterine cancer s/p hysterectomy, who presents with dyspnea, which is chronic but worsened overnight. The dyspnea is worse with exertion and when laying flat. Patient also reports generalized weakness and worsening bilateral lower extremity edema. She denies any associated fever, chest pain, palpitations, or unilateral leg pain. She says Dr. Gordon prescribed Lasix recently, but patient hasn't been taking it because it dries her out too much. She denies any history of CAD. Although not on home O2, patient had initial SpO2 in the mid to upper 80s and was placed on O2 per nasal cannula. Patient takes a daily aspirin; she is not on anti-coagulation. Pt Subjective Complaint: shortness of breath Onset (ago): week(s) Context: medication noncompliance Severity: moderate Consistency/Duration: gradually worsening Improves with: nothing Worsens with: lying flat, exertion Associated symptoms: Reports: cough, orthopnea. Denies: chest pain, pain with inspiration, fever, sputum production, lower extremity pain, palpitations, syncope Treatment prior to arrival: none - Related Data Home oxygen amount: none Home Medications Medication Instructions Recorded Confirmed Albuterol Sulfate [Ventolin Hfa] 2 puff IH Q4H PRN 10/27/16 10/27/16 Aspirin [Ecotrin] 325 mg PO DAILY 10/27/16 10/27/16 Lisinopril [Zestril] 20 mg PO DAILY 10/27/16 10/27/16 raNITIdine HCl [Ranitidine HCl] 150 mg PO BID 10/27/16 10/27/16 Previous Rx's Medication Instructions Recorded Docusate [Colace] 100 mg PO BID #30 capsule 10/30/16 Ondansetron ODT [Zofran ODT] 4 mg SL Q6HR PRN #30 tab.rapdis 10/30/16 OxyCODONE/APAP 5/325 [Percocet 1 each PO Q4HR PRN #30 tablet 10/30/16 5/325 MG] Amoxicillin [Amoxil] 500 mg PO BID #20 capsule 02/26/17 Fluticasone Propionate Nasal 120 spray NS DAILY #1 bottle 02/26/17 [Flonase] Mupirocin [Bactroban Oint] 1 appl TP BID #1 tube 02/26/17 Allergies Allergy/AdvReac Type Severity Reaction Status Date / Time No Known Allergies Allergy Verified 10/21/17 07:07 All systems ED: reviewed and negative except as stated. Constitutional: Reports: weakness (generalized) Cardiovascular: Reports: as per HPI, dyspnea on exertion, orthopnea, edema. Denies: chest pain, palpitations Respiratory: Reports: cough (occasional), dyspnea. Denies: sputum production Past Medical History - Past Medical History Medical history: Reports: arthritis, cancer (Uterine), hyperlipidemia, hypertension Surgical history: Reports: hysterectomy Psychiatric history: Reports: no psych history CARD FOLDER history: Reports: no CARD FOLDER history - Social History Smoking Status: Never smoker Smokeless Tobacco Status: No Alcohol use: Reports: none Drug use: Reports: none Physical Exam - General Limitations: no limitations General appearance: alert, obese - Head Head exam: atraumatic, normocephalic - Eye Eye exam: Present: other (left eye abnormal, secondary to trauma during childhood) - ENT ENT exam: normal exam - Neck Neck exam: Present: normal inspection - Chest Chest inspection: Present: normal inspection - Respiratory Respiratory exam: Present: other (slightly increased work of breathing, slightly decreased air entry bilaterally) - Cardiovascular Cardiovascular exam: Present: tachycardia, irregular rhythm - Abdominal Exam Abdominal exam: Present: soft, Non-Tender. Absent: distention - Extremities Exam Extremities exam: Present: pedal edema (severe pitting edema bilaterally). Absent: calf tenderness - Neurological Exam Neurological exam: Present: alert, oriented X3. Absent: motor sensory deficit - Psychiatric Psychiatric exam: Present: normal affect, normal mood - Skin Skin exam: Present: warm, dry, intact Course - Reevaluation(s) Reevaluation #1: Patient's rate has improved to 80-100 after Diltiazem bolus. Time: 08:05 Reevaluation #2: Patient feeling better with rate control. Still, she has symptoms suggestive of CHF, likely secondary to the RVR. Will admit for further treatment. Time: 09:04 - Consultations Consultation #1: Discussed with Dr. Soliz, and patient accepted for admission. Time: 09:05 Vital Signs Temperature 97.6 F 10/21/17 07:06 Pulse Rate 150 10/21/17 07:06 Respiratory Rate 22 10/21/17 07:06 Blood Pressure 112/71 10/21/17 07:06 O2 Sat by Pulse Oximetry 95 10/21/17 07:06 Temperature 97.6 F 10/21/17 07:24 Pulse Rate 105 10/21/17 08:32 Respiratory Rate 24 10/21/17 08:32 Blood Pressure 121/89 10/21/17 08:32 O2 Sat by Pulse Oximetry 95 10/21/17 08:32 Oxygen Delivery Oxygen Delivery Nasal Cannula Shortness of Breath/Dyspnea - [facility] Narrative Medical decision making narrative: Patient presented with acute on chronic exertional dyspnea, orthopnea, and edema. She is in a-fib with RVR and likely CHF. As her BP is in the low-normal range, we will focus on rate control and hold the Lasix for now. We will initiate cardiac workup and admit. - Lab Data Result diagrams: 10/21/17 07:43 10/21/17 07:43 Lab Results 10/21/17 10/21/17 10/21/17 Range/Units 07:43 07:43 07:43 WBC 6.1 (4.3-11.1) K/mcL RBC 4.89 (3.82-4.97) M/mcL Hgb 14.7 (11.5-15.4) g/dL Hct 46.1 H (35.3-44.9) % MCV 94.3 (83.0-100.0) fL MCH 30.1 (28.0-33.3) pg MCHC 31.9 (31.6-35.5) g/dL RDW 13.6 (11.5-14.5) % Plt Count 147 (140-400) K/mcL MPV 9.7 (9.4-12.4) fL Immature Gran % 0.5 (0-4) % Seg Neutrophils % 72.5 % Lymphocytes % 17.0 % Monocytes % 8.2 % Eosinophils % 1.5 % Basophils % 0.3 % Neutrophils # 4.4 (1.6-8.9) K/mcL Lymphocytes # 1.0 (0.6-4.6) K/mcL Monocytes # 0.5 (0.0-1.3) K/mcL Eosinophils # 0.1 (0.0-0.6) K/mcL Basophils # 0.0 (0.0-0.2) K/mcL PT 13.9 H (9.4-12.1) Seconds INR 1.3 APTT 31.7 (26.0-36.0) Seconds Sodium 137 (136-145) mEq/L Potassium 4.4 (3.5-5.1) mEq/L Chloride 102 (98-107) mEq/L Carbon Dioxide 26 (23-29) mEq/L BUN 13 (8-23) mg/dL Creatinine 0.71 (0.60-1.20) mg/dL Est GFR ( Amer) > 60 (> 60) Est GFR (Non-Af Amer) > 60 (> 60) BUN/Creatinine Ratio 18 (6-26) Glucose 138 H (70-105) mg/dL Calculated Osmolality 286 (280-300) Calcium 9.8 (8.6-10.3) mg/dL Magnesium 2.0 (1.6-2.6) mg/dL Troponin I 0.03 (< 0.04) ng/mL B-Natriuretic Peptide (Less than 100) pg/mL TSH 4.162 (0.340-5.600) mcIU/mL 10/21/17 Range/Units 07:43 WBC (4.3-11.1) K/mcL RBC (3.82-4.97) M/mcL Hgb (11.5-15.4) g/dL Hct (35.3-44.9) % MCV (83.0-100.0) fL MCH (28.0-33.3) pg MCHC (31.6-35.5) g/dL RDW (11.5-14.5) % Plt Count (140-400) K/mcL MPV (9.4-12.4) fL Immature Gran % (0-4) % Seg Neutrophils % % Lymphocytes % % Monocytes % % Eosinophils % % Basophils % % Neutrophils # (1.6-8.9) K/mcL Lymphocytes # (0.6-4.6) K/mcL Monocytes # (0.0-1.3) K/mcL Eosinophils # (0.0-0.6) K/mcL Basophils # (0.0-0.2) K/mcL PT (9.4-12.1) Seconds INR APTT (26.0-36.0) Seconds Sodium (136-145) mEq/L Potassium (3.5-5.1) mEq/L Chloride (98-107) mEq/L Carbon Dioxide (23-29) mEq/L BUN (8-23) mg/dL Creatinine (0.60-1.20) mg/dL Est GFR ( Amer) (> 60) Est GFR (Non-Af Amer) (> 60) BUN/Creatinine Ratio (6-26) Glucose (70-105) mg/dL Calculated Osmolality (280-300) Calcium (8.6-10.3) mg/dL Magnesium (1.6-2.6) mg/dL Troponin I (< 0.04) ng/mL B-Natriuretic Peptide 311 H (Less than 100) pg/mL TSH (0.340-5.600) mcIU/mL - Radiology Data Radiology results reviewed: Yes I reviewed the patient's radiology results. XR/XR chest 1V portable IMPRESSION: Stable chest. No acute cardiopulmonary abnormality. Right hemidiaphragm elevation again seen. - EKG Data EKG attestation: Yes I reviewed and interpreted this EKG. EKG results narrative: EKG #2 (08:08) - AF at 97. Lateral T wave inversion. Rate: Reports: tachycardia Rhythm: Reports: A.Fib [place]/QRS: Reports: left axis deviation T wave inversions noted in: Reports: I, aVL When compared to previous EKG there are: no significant changes
[2017-10-21 08:02] LABS: Basophils % 0.3 %; Eosinophils # 0.1 K/mcL (0.0-0.6); Eosinophils % 1.5 %; Hematocrit 46.1 % (35.3-44.9); Hemoglobin 14.7 g/dL (11.5-15.4); Immature Granulocytes % 0.5 % (0-4); Mean Corpuscular HGB Conc 31.9 g/dL (31.6-35.5); Mean Corpuscular Hemoglobin 30.1 pg (28.0-33.3); Mean Corpuscular Volume 94.3 fL (83.0-100.0); Mean Platelet Volume 9.7 fL (9.4-12.4); Monocytes # 0.5 K/mcL (0.0-1.3); Monocytes % 8.2 %; Neutrophils # 4.4 K/mcL (1.6-8.9); Platelet Count 147 K/mcL (140-400); Red Blood Count 4.89 M/mcL (3.82-4.97); Red Cell Distribution Width 13.6 % (11.5-14.5); Segmented Neutrophils % 72.5 %
[2017-10-21 08:08] LABS: INR 1.3; Prothrombin Time 13.9 Seconds (9.4-12.1)
[2017-10-21 08:10] LABS: Activated Partial Thrombo Time 31.7 Seconds (26.0-36.0)
[2017-10-21 08:21] LABS: BUN/Creatinine Ratio 18 (6-26); Blood Urea Nitrogen 13 mg/dL (8-23); Calcium 9.8 mg/dL (8.6-10.3); Carbon Dioxide 26 mEq/L (23-29); Chloride 102 mEq/L (98-107); Glucose 138 mg/dL (70-105); Osmolality,Calculated 286 (280-300); Potassium 4.4 mEq/L (3.5-5.1); Sodium 137 mEq/L (136-145); eGFR For African Americans > 60 (> 60); eGFR For Non-African Americans > 60 (> 60)
[2017-10-21 08:25] LABS: Troponin I 0.03 ng/mL (< 0.04)
[2017-10-21 08:36] LABS: Thyroid Stimulating Hormone 4.162 mcIU/mL (0.340-5.600)
[2017-10-21] MEDS ORDERED: Furosemide 40 MG/4 ML VIAL IVP ONE (09:08)
[2017-10-21] MEDS ORDERED: Naloxone 0.4 MG/ML INJ IVP PRN (09:42)
--- NOTE | 2017-10-21 10:01 | Internal Med History&Physical ---
Date of Encounter: 10/21/17 Time of Encounter: 09:52 Internal Medicine - H&P: HPI Chief complaint: Short of breath, palpitation Admitted From: Home Plans for Post Hospital Care: Home History of present illness: Ms. Vasquez is a 77 year old female history of HTN, atrial fibrillation not on any anticoagulation as patient refused in the past after discussing with lithographic general worker, questionable CHF but not on routine diuretic and uterine cancer s/ p hysterectomy presents to ER with complaint of progressive shortness of breath and lower extremity swelling for last 6-8 weeks but today she felt palpitation therefore decided to come to ER. In the ER patient was found to be in A. fib with RVR and diltiazem bolus 10 mg given and a started Cardizem drip. Initial heart rate was around 150s then came down to around 100 after starting Cardizem drip. Patient was also hypoxic SPO2 in 80s therefore restarted oxygen by nasal cannula in ER. Initial troponin negative, slight raised BNP. ER physician called on-call hospitalists for inpatient admission with the diagnosis of A. fib with RVR and CHF exacerbation. Patient has chronic shortness of breath and lower extremity edema but getting worse and last few weeks progressively. Patient was seen by her primary care provider last week who is started Lasix 20 mg daily but patient just took a few as had concerned that it will dry her up. Patient is known A. fib and has been on amiodarone and beta johana for almost 6 years but these medicine where taken off by her lithographic general worker Dr. Verde last year also as her heart rate was found to be in 40s. Her lithographic general worker also discuss to consider possible pacemaker/AICD but still debating. Patient denies fever, chills, nausea, vomiting, abdominal pain, urinary or bowel complaint, cough, chest pain, headache, dizziness. Past Med Surg Social Fam HX - Past Medical History Medical history: arthritis, cancer (Uterine), hyperlipidemia, hypertension Psychiatric history: no psych history - Past Surgical History Surgical History: hysterectomy - Social History Smoking Status: Never smoker Smokeless Tobacco Status: No Alcohol use: none Drug use: none - Family History Mother Hx Family Cardiac Disorders: Yes (CONGESTIVE HEART FAILURE.) Internal Medicine - H&P: Meds Aspirin [Ecotrin] 325 mg PO DAILY 10/27/16 [History] Lisinopril [Zestril] 20 mg PO DAILY 10/27/16 [History] raNITIdine HCl [Ranitidine HCl] 150 mg PO BID 10/27/16 [History] Docusate [Colace] 100 mg PO BID #30 capsule 10/30/16 [Rx] Paroxetine HCl [Paxil] 10 mg PO DAILY 10/21/17 [History] 3 Allergy/AdvReac Type Severity Reaction Status Date / Time No Known Allergies Allergy Verified 10/21/17 09:20 All Systems PM: as documented above in the HPI. - Constitutional Vitals: Temp Pulse Resp BP Pulse Ox 97.6 F 105 24 121/89 95 10/21/17 07:24 10/21/17 08:32 10/21/17 08:32 10/21/17 08:32 10/21/17 08:32 Exam: General appearance: Mild distress due to labored breathing, family at bedside, A &O X 3 Head exam: Atraumatic Eye exam: EOMI, PERRLA ENT exam: Moist oral mucosa Neck nontender, supple Respiratory exam: Decreased breath sound bi basilar Cardiovascular exam: Tachycardia, irregularly irregular rhythm, no systolic murmur Abdominal exam: Soft, nontender, nondistended, positive bowel sounds , morbid obese Extremities exam: No calf tenderness, +3 pedal edema bilaterally Skin- warm, dry, intact Neurological exam: Alert, awake, oriented 3, CN II-XII intact, no focal deficits. No facial droop. Normal speech. Internal Med - H&P Results - Labs CBC & Chem 7: 10/21/17 07:43 10/21/17 07:43 Labs: Short CBC 10/21/17 Range/Units 07:43 WBC 6.1 (4.3-11.1) K/mcL Hgb 14.7 (11.5-15.4) g/dL Hct 46.1 H (35.3-44.9) % Plt Count 147 (140-400) K/mcL Neutrophils # 4.4 (1.6-8.9) K/mcL BMP 10/21/17 07:43 Sodium 137 Potassium 4.4 Chloride 102 Carbon Dioxide 26 BUN 13 Creatinine 0.71 Glucose 138 H Calcium 9.8 Cardiac Enzymes 10/21/17 Range/Units 07:43 Troponin I 0.03 (< 0.04) ng/mL - Impressions ITS Impressions Chest X-Ray 10/21/17 07:33 IMPRESSION: Stable chest. No acute cardiopulmonary abnormality. Right hemidiaphragm elevation again seen. D/ / Tyson De La Torre MD / Tyson De La Torre MD Interpreting Provider: Tyson De La Torre MD - Assessment and plan (1) Atrial fibrillation with RVR Current Visit: Yes Status: Acute Assessment and plan: History of A. fib in the past and has been on amiodarone and beta johana for 6- year but was stopped by her lithographic general worker Dr. Verde with the concern of bradycardia. At present she is not on any anticoagulation or rate control medicine at home. In the past lithographic general worker's discuss about anticoagulation choices and wanted to start on pradexa but patient declined. Continue Cardizem drip is started by ER physician. Consulted lithographic general worker and will consider anticoagulation as per lithographic general worker advice. TSH, serial troponin, telemetry bed , Echocardiogram ordered. (2) CHF exacerbation Current Visit: Yes Status: Acute Assessment and plan: History of questionable diastolic heart failure but patient is not on any diuretic. Need further evaluation. IV Lasix, strict I&O's, echocardiogram. Powder Truck Driver's on board. Qualifiers: Heart failure type: unspecified Qualified Code(s): I50.9 - Heart failure, unspecified (3) Hypertension Current Visit: Yes Status: Acute Assessment and plan: Close monitoring. Continue home medicine Qualifiers: Hypertension type: essential hypertension Qualified Code(s): I10 - Essential (primary) hypertension (4) DVT prophylaxis Current Visit: Yes Status: Acute Assessment and plan: SCDs, Lovenox - Time Spent With Patient Total time spent is greater than 50% in coordination of care (as documented) at patient's floor/unit and/or counseling patient: 25 - 35 minutes
--- NOTE | 2017-10-21 12:23 | Electrocardiograph Report ---
[employer] Test Date: 2017-10-21 Pat Name: Emelia Vasquez Department: 103 Room: 2A43 Gender: F Investment Strategist: CHARLETTE : 1940 Requested By: Daniel Frazier Order Number: [id number] Reading MD: Geo Silva Measurements Intervals [place] Rate: 148 P: [place]: 0 QRS: -31 QRSD: 88 T: 147 QT: 279 QTc: 364 Interpretive Statements ATRIAL FIBRILLATION WITH RAPID VENTRICULAR RESPONSE MARKED LEFT AXIS DEVIATION [QRS AXIS < -30] PATTERN CONSISTENT WITH PULMONARY DISEASE ST DEVIATION AND MODERATE T-WAVE ABNORMALITY, CONSIDER LATERAL ISCHEMIA [-0.1+ mV T WAVE IN I/aVL/V5/V6] Electronically Signed On 10-21-2017 12:21:38 EDT by Geo Silva
--- NOTE | 2017-10-21 12:24 | Electrocardiograph Report ---
[employer] Test Date: 2017-10-21 Pat Name: Emelia Vasquez Department: 103 Room: 2A43 Gender: F Market Risk Analyst: : 1940 Requested By: Daniel Frazier Order Number: [id number] Reading MD: Geo Silva Measurements Intervals [place] Rate: 97 P: [place]: 0 QRS: -26 QRSD: 101 T: 152 QT: 364 QTc: 419 Interpretive Statements ATRIAL FIBRILLATION BORDERLINE LEFT AXIS DEVIATION [QRS AXIS < -20] ST DEVIATION AND MODERATE T-WAVE ABNORMALITY, CONSIDER LATERAL ISCHEMIA [-0.1+ mV T WAVE IN I/aVL/V5/V6] WARNING: DATA QUALITY MAY AFFECT INTERPRETATION Electronically Signed On 10-21-2017 12:22:45 EDT by Geo Silva
--- NOTE | 2017-10-21 15:27 | Cardiology Consult Note ---
<Brandee Meza Charmaine - Last Filed: 10/21/17 15:28> Date of Encounter: 10/21/17 Time of Encounter: 15:15 Assessment and Plan (1) Atrial fibrillation with RVR Current Visit: Yes Status: Acute Hx of PAF not on anticoagulation, patient declines full AC. Previously on amiodarone and betablocker, appears to have been discontinued in 2016 due to bradycardia. Has not followed with Cardiology in >1 year. Agree with IV cardizem gtt, titrate to keep HR less than 100. When HR are controlled, will transition to po cardizem. Continue asa for AC, patient aware of increased risk for CVA. (2) Congestive heart failure Current Visit: Yes Status: Acute Suspect acute on chronic diastolic CHF secondary to atrial fibrillation with RVR. Significant volume overload upon exam. Prior TTE (2015) demonstrates preserved LVEF with moderate diastolic dysfunction. Agree with IV lasix. Monitor electrolytes closely. Strict I&O's, daily weights, Na/fluid restriction diet. Qualifiers: Heart failure type: diastolic Heart failure chronicity: acute on chronic Qualified Code(s): I50.33 - Acute on chronic diastolic (congestive) heart failure Discussion w patient/family: The assessment and plan as outlined above was discussed with the patient and/or family members who expressed understanding and agreement. All questions were answered. Thank you for involving us in the care of your patient. Please call with any questions. The patient will be discussed and reviewed with Dr. Amin; changes to be made accordingly. History of Present Illness Consult date: 10/21/17 Requesting physician: Kelly Soliz Consult reason: Afib Chief complaint: Shortness of breath, tachycardia History of present illness: Ms. Vasquez is a 77 year old female with PHMx significant for PAF, HTN, recovered cardiomyopathy, and uterine CA who presented to the ED with x2 week history or worsening shortness of breath and fast heart rates. Symptoms initially started 2 weeks ago when she noticed her feet swelling, PCP at that time started lasix however patient only took a few doses because it reportedly made her weak. Reports worsened shortness of breath and difficulty breathing overnight which prompted ED evaluation. No chest pain reported, no syncope or pre-syncope. ECG upon arrival demonstrated atrial fibrillation with RVR, HR 148. Upon review , was taken off amiodarone and betablockers in 2017 due bradycardia. Has not followed with Cardiology in 1+ year. Prior CV testing: TTE 10/11/15: LVEF 60%, moderate LVDD, dilated RV with normal function, moderate PH TTE 2010: LVEF 30-35%, moderate MAC, dilated RV with normal function, trivial AR, trace MR LHC 2010: LVEF 40-45%, minimal, non-obstructive CAD Past Med Surg Social Fam HX - Past Medical History Attestation: Yes The following information was validated with the patient. Source: patient Medical history: arthritis, asthma, atrial fibrillation, cancer, CHF, hyperlipidemia, hypertension Psychiatric history: anxiety - Past Surgical History Surgical History: cholecystectomy, hysterectomy - Social History Smoking Status: Never smoker Smokeless Tobacco Status: No Alcohol use: none Drug use: none - Family History Mother History Unknown: Yes Hx Family Cardiac Disorders: Yes Hx Family Respiratory Disorders: Yes Hx Family Musculoskeletal Disorders: Yes Father Hx Family Cardiac Disorders: Yes Hx Family Neurologic Disorders: Yes Medications and Allergies Aspirin [Ecotrin] 325 mg PO DAILY 10/27/16 [History] Lisinopril [Zestril] 20 mg PO DAILY 10/27/16 [History] raNITIdine HCl [Ranitidine HCl] 150 mg PO BID 10/27/16 [History] Docusate [Colace] 100 mg PO BID #30 capsule 10/30/16 [Rx] Paroxetine HCl [Paxil] 10 mg PO DAILY 10/21/17 [History] 3 Allergy/AdvReac Type Severity Reaction Status Date / Time No Known Allergies Allergy Verified 10/21/17 09:20 All Systems Review: The remainder of the systems were reviewed and are negative - Cardiovascular Cardiovascular: as per HPI Physical Examination Vital Signs, Last 4 Hours Temp Pulse Resp BP Pulse Ox 10/21/17 13:39 110 135/70 10/21/17 12:50 95 10/21/17 12:21 97.2 F L 101 23 113/80 95 General: Other (conversational dyspnea noted; morbidly obese) HEENT: Atraumatic, Normocephaly Cardiac: Other (tachycardiac, irregularly irregular) Lungs: Other (Decreased, wheezing) Neuro: Alert and responsive Abdomen: Soft Skin: No rashes noted on visualized skin Musculoskeletal: No Chest Wall Tenderness Extremities: Other (significant LE edema noted, discolored LE's) Results 10/21/17 07:43 10/21/17 07:43 Lab Results 10/21/17 13:34 Troponin I < 0.03 Active Medications Aspirin (Aspirin Ec) 325 mg PO DAILY MAC Stop: 04/23/18 09:01 Docusate Sodium (Colace) 100 mg PO BID MAC PRN Reason: Protocol Stop: 04/22/18 21:01 Enoxaparin Sodium (Lovenox) 40 mg SQ 0600 MAC PRN Reason: Protocol Stop: 04/23/18 06:01 Famotidine (Pepcid) 20 mg PO BID MAC Stop: 04/22/18 21:01 Furosemide (Lasix) 40 mg IVP BIDDIURETIC MAC Stop: 04/22/18 17:01 Diltiazem HCl 125 mg/ Sodium (Chloride) 125 mls @ 5 mls/hr IVC .Q24H MAC; 5 MG/ HR PRN Reason: Protocol Stop: 04/22/18 07:46 Last Titration: 10/21/17 13:51 Dose: 12.5 mg/hr, 12.5 mls/hr Lisinopril (Zestril) 20 mg PO DAILY MAC PRN Reason: Protocol Stop: 04/23/18 09:01 Naloxone HCl (Narcan) 0.4 mg IVP Q2MIN PRN PRN Reason: SEE COMMENTS Stop: 04/22/18 09:43 Paroxetine HCl (Paxil) 10 mg PO DAILY MAC Stop: 04/23/18 09:01 Impressions Chest X-Ray 10/21/17 07:33 IMPRESSION: Stable chest. No acute cardiopulmonary abnormality. Right hemidiaphragm elevation again seen. D/ / Tyson De La Torre MD / Tyson De La Torre MD Interpreting Provider: Tyson De La Torre MD - Imaging and Cardiology Echo: report reviewed Cardiac cath: report reviewed - EKG Interpretation EKG results cardiology: personally reviewed Consult Discharge Plan - Plan Referrals: Lara Gordon, PRESS OPERATOR [employer] [Primary Care Provider] - <Galo Amin - Last Filed: 10/22/17 15:51> Date of Encounter: 10/22/17 - Attending Attestation I have personally performed a face to face evaluation on this patient. I have reviewed and agree with the care plan. History and Exam by me shows: 77 YOF with h/o PAF refuses AC and over last 2 years has been off her amiodarone and BB for bradycardia. She denies any chest pain but does get SOB with her Afib RVR. Last EF preserved with moderate DD likely component of CHF on presentation. Restart CCB at low dose and titrate gently as tolerated then switch to PO ECHO to evaluate EF Consider OP stress test if patient is willing to start dual antiplatelet therapy (if not continue medical management) Assessment and Plan Discussion w patient/family: The assessment and plan as outlined above was discussed with the patient and/or family members who expressed understanding and agreement. All questions were answered. Thank you for involving us in the care of your patient. Please call with any questions. History of Present Illness History of present illness: Ms. Vasquez is a 77 year old female All Systems Review: The remainder of the systems were reviewed and are negative Results 10/22/17 05:04 10/22/17 05:04 Lab Results 10/21/17 10/22/17 10/22/17 19:54 05:04 05:04 WBC 7.0 Hgb 13.5 Hct 42.5 Plt Count 134 L Sodium 142 Potassium 4.4 Chloride 101 Carbon Dioxide 33 H BUN 15 Creatinine 0.71 Glucose 100 Calcium 9.2 Total Bilirubin 0.6 AST 14 ALT 7 Alkaline Phosphatase 51 Troponin I 0.03 TSH 1.929
[2017-10-21] MEDS: Furosemide 40 MG/4 ML VIAL IVP SCH (16:57)
[2017-10-21] MEDS: Famotidine 20 MG TABLET PO SCH ×2 (21:49→21:51)
[2017-10-22] MEDS: *HR* Enoxaparin 40 MG/0.4 ML SYRINGE SQ SCH (06:04)
[2017-10-22 06:10] LABS: Basophils % 0.3 %; Eosinophils # 0.2 K/mcL (0.0-0.6); Eosinophils % 2.3 %; Hematocrit 42.5 % (35.3-44.9); Hemoglobin 13.5 g/dL (11.5-15.4); Immature Granulocytes % 0.4 % (0-4); Lymphocytes # 1.1 K/mcL (0.6-4.6); Lymphocytes % 15.3 %; Mean Corpuscular HGB Conc 31.8 g/dL (31.6-35.5); Mean Corpuscular Hemoglobin 30.8 pg (28.0-33.3); Mean Platelet Volume 9.6 fL (9.4-12.4); Monocytes # 0.7 K/mcL (0.0-1.3); Monocytes % 9.4 %; Neutrophils # 5.1 K/mcL (1.6-8.9); Platelet Count 134 K/mcL (140-400); Red Blood Count 4.38 M/mcL (3.82-4.97); Red Cell Distribution Width 13.8 % (11.5-14.5); Segmented Neutrophils % 72.3 %
[2017-10-22 06:27] LABS: Alanine Aminotransferase 7 Units/L (7-52); Albumin 3.9 g/dL (3.5-5.7); Albumin/Globulin Ratio 1.6 (1.1-2.2); Alkaline Phosphatase 51 Units/L (34-104); Aspartate Amino Transferase 14 Units/L (13-39); BUN/Creatinine Ratio 21 (6-26); Bilirubin,Total 0.6 mg/dL (0.3-1.0); Blood Urea Nitrogen 15 mg/dL (8-23); Calcium 9.2 mg/dL (8.6-10.3); Carbon Dioxide 33 mEq/L (23-29); Chloride 101 mEq/L (98-107); Chol/HDL Ratio 3.5 (0-4.9); Cholesterol 149 mg/dL (< 200); Globulin 2.5 g/dL (2.4-3.5); Glucose 100 mg/dL (70-105); HDL Cholesterol 42 mg/dL (40-59); LDL Cholesterol,Calculated 89 mg/dL (0-99); Osmolality,Calculated 295 (280-300); Potassium 4.4 mEq/L (3.5-5.1); Sodium 142 mEq/L (136-145); Total Protein 6.4 g/dL (6.4-8.9); Triglycerides 88 mg/dL (< 150); eGFR For African Americans > 60 (> 60); eGFR For Non-African Americans > 60 (> 60)
[2017-10-22] MEDS: Aspirin Enteric Coated 325 MG Tablet PO SCH (09:18)
[2017-10-22] MEDS: Famotidine 20 MG TABLET PO SCH ×2 (09:18→21:50)
[2017-10-22] MEDS: Furosemide 40 MG/4 ML VIAL IVP SCH ×2 (09:19→17:05)
[2017-10-22] MEDS: Lisinopril 20 MG TABLET PO SCH (09:19)
[2017-10-22 10:19] LABS: Thyroid Stimulating Hormone 1.929 mcIU/mL (0.340-5.600)
--- NOTE | 2017-10-22 13:24 | Cardiology Progress Note ---
Date of Encounter: 10/22/17 Time of Encounter: 13:00 Assessment and Plan (1) Atrial fibrillation with RVR Current Visit: Yes Status: Acute Hx of PAF not on anticoagulation, patient declines full AC. Previously on amiodarone and betablocker, appears to have been discontinued in 2016 due to bradycardia. Has not followed with Cardiology in >1 year. Agree with IV cardizem gtt, titrate to keep HR less than 100. HR's 90s, will start short acting cardizem, first dose now. Anticipate HR control will improve as respiratory status improves. Continue asa for AC, patient aware of increased risk for CVA. (2) Congestive heart failure Current Visit: Yes Status: Acute Suspect acute on chronic diastolic CHF secondary to atrial fibrillation with RVR. Also suspect underlying component of COPD which may be attributing to RVR. Significant volume overload upon exam. Prior TTE (2015) demonstrates preserved LVEF with moderate diastolic dysfunction. Repeat TTE pending. Cumulative I&O: -1L Agree with IV lasix. Monitor electrolytes closely. Strict I&O's, daily weights, Na/fluid restriction diet. Qualifiers: Heart failure type: diastolic Heart failure chronicity: acute on chronic Qualified Code(s): I50.33 - Acute on chronic diastolic (congestive) heart failure Discussion w patient/family: The assessment and plan as outlined above was discussed with the patient and/or family members who expressed understanding and agreement. All questions were answered. Thank you for involving us in the care of your patient. Please call with any questions. The patient will be discussed and reviewed with Dr. Amin; changes to be made accordingly. Subjective Principal diagnosis: Afib, dyspnea Interval history: Seen and examined. Shortness of breath improved, still with significant LE edema. No other complaints today upon exam. Objective Vital Signs, Last 4 Hours Temp Pulse Resp BP Pulse Ox 10/22/17 11:13 98.5 F 103 17 137/75 94 10/22/17 09:34 97 General: Conversant HEENT: Atraumatic, Normocephaly Cardiac: Other (irregularly irregular) Lungs: Other (Decreased throughout) Neuro: Alert and responsive Abdomen: Soft Skin: No rashes noted on visualized skin Musculoskeletal: No Chest Wall Tenderness Extremities: Other (Non-pitting significant LE edema. ) Results 10/22/17 05:04 10/22/17 05:04 Lab Results 10/21/17 10/21/17 10/22/17 13:34 19:54 05:04 WBC 7.0 Hgb 13.5 Hct 42.5 Plt Count 134 L Sodium Potassium Chloride Carbon Dioxide BUN Creatinine Glucose Calcium Total Bilirubin AST ALT Alkaline Phosphatase Troponin I < 0.03 0.03 TSH 10/22/17 05:04 WBC Hgb Hct Plt Count Sodium 142 Potassium 4.4 Chloride 101 Carbon Dioxide 33 H BUN 15 Creatinine 0.71 Glucose 100 Calcium 9.2 Total Bilirubin 0.6 AST 14 ALT 7 Alkaline Phosphatase 51 Troponin I TSH 1.929 Active Medications Aspirin (Aspirin Ec) 325 mg PO DAILY [facility] Stop: 04/23/18 09:01 Last Admin: 10/22/17 09:18 Dose: 162 mg Docusate Sodium (Colace) 100 mg PO BID MAC PRN Reason: Protocol Stop: 04/22/18 21:01 Last Admin: 10/22/17 09:17 Dose: Not Given Enoxaparin Sodium (Lovenox) 40 mg SQ 0600 [facility] PRN Reason: Protocol Stop: 04/23/18 06:01 Last Admin: 10/22/17 06:04 Dose: 40 mg Famotidine (Pepcid) 20 mg PO BID MAC Stop: 04/22/18 21:01 Last Admin: 10/22/17 09:18 Dose: Not Given Furosemide (Lasix) 40 mg IVP BIDDIURETIC MAC Stop: 04/22/18 17:01 Last Admin: 10/22/17 09:19 Dose: 40 mg Diltiazem HCl 125 mg/ Sodium (Chloride) 125 mls @ 5 mls/hr IVC .Q24H MAC; 5 MG/ HR PRN Reason: Protocol Stop: 04/22/18 07:46 Last Admin: 10/21/17 21:51 Dose: 12.5 mg/hr, 12.5 mls/hr Lisinopril (Zestril) 20 mg PO DAILY MAC PRN Reason: Protocol Stop: 04/23/18 09:01 Last Admin: 10/22/17 09:19 Dose: 20 mg Naloxone HCl (Narcan) 0.4 mg IVP Q2MIN PRN PRN Reason: SEE COMMENTS Stop: 04/22/18 09:43 Paroxetine HCl (Paxil) 10 mg PO DAILY MAC Stop: 04/23/18 09:01 Last Admin: 05/18/18 09:17 Dose: Not Given - Imaging and Cardiology Echo: pending Other Results: 12 hour tele: avg [id number] - EKG Interpretation EKG results cardiology: personally reviewed - VTE Documentation of Mechanical Device: Intermittent pneumatic compression device Consult Discharge Plan - Plan Referrals: Lara Gordon, LABORATORY MACHINIST [Primary Care Provider] -
--- NOTE | 2017-10-22 14:23 | Internal Med Progress Note ---
Date of Encounter: 10/22/17 Time of Encounter: 10:40 - Assessment and plan (1) Atrial fibrillation with RVR Current Visit: Yes Status: Acute Assessment and plan: Patient remains in A. fib but heart rate improving. On intravenous Cardizem. We will transition to oral Cardizem per cardiology recommendations. Patient does not wish to be on anticoagulation although she does require it. 2-D echocardiogram ordered. Will await results. (2) CHF exacerbation Current Visit: Yes Status: Acute Assessment and plan: Awaiting 2-D echocardiogram. Continue treating with Lasix. Patient has had good response so far. Will continue IV Lasix for another day. Cardiology following. Qualifiers: Heart failure type: unspecified Qualified Code(s): I50.9 - Heart failure, unspecified (3) Hypertension Current Visit: Yes Status: Chronic Assessment and plan: Controlled. Continue lisinopril Qualifiers: Hypertension type: essential hypertension Qualified Code(s): I10 - Essential (primary) hypertension (4) DVT prophylaxis Current Visit: Yes Status: Acute Assessment and plan: On subcutaneous Lovenox for DVT prophylaxis - Time Spent With Patient Total time spent is greater than 50% in coordination of care (as documented) at patient's floor/unit and/or counseling patient: - Subjective Interval history: Patient is awake and alert. Feels better today. Denies any chest pain or palpitations. Still has some shortness of breath especially with lying down and swelling in her lower extremities. No fever or chills reported overnight. No cough - Constitutional Vitals: Temp Pulse Resp BP Pulse Ox 98.5 F 103 17 137/75 94 10/22/17 11:13 10/22/17 11:13 10/22/17 11:13 10/22/17 11:13 10/22/17 11:13 General appearance: Present: cooperative, A&O X 3, morbidly obese, pleasant, answers questions appropriately - Neck Neck exam general surgery: Present: supple, trachea midline. Absent: lymphadenopathy - Respiratory Respiratory exam: Present: CTAB. Absent: accessory muscle use, rales, rhonchi, wheezes - Cardiovascular Cardiovascular exam: Present: irregular rhythm, +S1, +S2, tachycardia. Absent: diastolic murmur, gallop, rubs, systolic murmur - GI/Abdominal GI/Abdominal exam: Present: normal bowel sounds, soft, no peritoneal signs. Absent: distended, tenderness - Extremities Exam Extremities exam: Present: warm, radial pulses palpable and symmetrical. Absent : calf tenderness, cyanotic, pedal edema Internal Medicine: Result - Labs CBC & Chem 7: 10/22/17 05:04 10/22/17 05:04 Labs: Short CBC 10/22/17 Range/Units 05:04 WBC 7.0 (4.3-11.1) K/mcL Hgb 13.5 (11.5-15.4) g/dL Hct 42.5 (35.3-44.9) % Plt Count 134 L (140-400) K/mcL Neutrophils # 5.1 (1.6-8.9) K/mcL BMP 10/22/17 05:04 Sodium 142 Potassium 4.4 Chloride 101 Carbon Dioxide 33 H BUN 15 Creatinine 0.71 Glucose 100 Calcium 9.2 Cardiac Enzymes 10/21/17 Range/Units 19:54 Troponin I 0.03 (< 0.04) ng/mL Liver Function 10/22/17 Range/Units 05:04 Total Bilirubin 0.6 (0.3-1.0) mg/dL AST 14 (13-39) Units/L ALT 7 (7-52) Units/L Alkaline Phosphatase 51 (34-104) Units/L Albumin 3.9 (3.5-5.7) g/dL - ABG Interpretation ABG results: PT/INR, D-dimer PT 13.9 Seconds (9.4-12.1) H 10/21/17 07:43 - VTE Documentation of Mechanical Device: Intermittent pneumatic compression device Consult Discharge Plan - Plan Referrals: Lara Gordon, MACHINE STAPLER [Primary Care Provider] -
[2017-10-22] MEDS ORDERED: Perflutren Lipid Microsphere 1.3 ML in 0.9 % Sodium Chloride 8.7 ML IVP ONE (15:40)
[2017-10-22 17:34] LABS: Bilirubin,Urine Negative (Negative); Blood,Urine Moderate (Negative); Clarity,Urine Clear (Clear); Color,Urine Yellow (Yellow); Glucose,Urine (UA) Normal (Normal); Ketones,Urine Negative (Negative); Leukocyte Esterase,Urine Small (Negative); Nitrite,Urine Positive (Negative); Protein,Urine Negative (Neg-Trace); Specific Gravity,Urine 1.012 (1.010-1.025); Urobilinogen,Urine Normal (Normal)
[2017-10-22 17:35] LABS: Bacteria,Urine Many per hpf (None-Few); Hyaline Casts,Urine None Seen per lpf (None-Few); RBC,Urine 15-30 per hpf (0-3); Squamous Epithelial Cell,Urine Few per lpf (None-Few); WBC,Urine 15-30 per hpf (0-3)
[2017-10-23] MEDS: *HR* Enoxaparin 40 MG/0.4 ML SYRINGE SQ SCH (05:23)
[2017-10-23] MEDS: Famotidine 20 MG TABLET PO SCH ×2 (08:21→21:25)
[2017-10-23] MEDS: Furosemide 40 MG/4 ML VIAL IVP SCH ×2 (08:21→16:26)
[2017-10-23] MEDS: Lisinopril 20 MG TABLET PO SCH (08:22)
[2017-10-23] MEDS: Aspirin Enteric Coated 325 MG Tablet PO SCH (08:23)
--- NOTE | 2017-10-23 10:49 | Cardiology Progress Note ---
Date of Encounter: 10/23/17 Time of Encounter: 10:30 Assessment and Plan (1) Atrial fibrillation with RVR Current Visit: Yes Status: Acute Hx of PAF not on anticoagulation, patient declines full AC. Previously on amiodarone and betablocker, appears to have been discontinued in 2016 due to bradycardia. Has not followed with Cardiology in >1 year. HR's controlled, 90's. Will start LA Cardizem 180 mg daily, can increase if needed to optimize HR. EF normal per TTE. Anticipate HR control will improve as respiratory status improves. Continue asa for AC, patient aware of increased risk for CVA. Cardiology will sign-off, will coordinate outpatient f/u. (2) Congestive heart failure Current Visit: Yes Status: Acute Suspect acute on chronic diastolic CHF secondary to atrial fibrillation with RVR. Also suspect underlying component of COPD which may be attributing to RVR. Significant volume overload upon admission, now improved. TTE shows preserved LVEF. Cumulative I&O: -2017 mL Recommend additional 24 hours of IV diuresis, recommend transition to low dose/ prn lasix in the outpatient setting. Strict I&O's, daily weights, Na/fluid restriction diet. Qualifiers: Heart failure type: diastolic Heart failure chronicity: acute on chronic Qualified Code(s): I50.33 - Acute on chronic diastolic (congestive) heart failure Discussion w patient/family: The assessment and plan as outlined above was discussed with the patient and/or family members who expressed understanding and agreement. All questions were answered. Thank you for involving us in the care of your patient. Please call with any questions. The patient will be discussed and reviewed with Dr. Verde; changes to be made accordingly. Subjective Principal diagnosis: Afib, dyspnea Interval history: Seen and examined. Shortness of breath improved, LE edema improved. No other complaints today upon exam. Objective Vital Signs, Last 4 Hours Temp Pulse Resp BP Pulse Ox 10/23/17 08:40 95 10/23/17 07:14 97.6 F 68 15 127/64 95 General: Conversant HEENT: Atraumatic, Normocephaly Cardiac: Other (irregularly irregular) Lungs: Normal Breath Sounds Neuro: Alert and responsive Abdomen: Soft Skin: No rashes noted on visualized skin Musculoskeletal: No Chest Wall Tenderness Extremities: Other (non-pitting LE edema) Results 10/22/17 05:04 10/22/17 05:04 Active Medications Aspirin (Aspirin Ec) 325 mg PO DAILY [facility] Stop: 04/23/18 09:01 Last Admin: 10/23/17 08:23 Dose: 325 mg Diltiazem HCl (Cardizem Cd) 180 mg PO DAILY [facility] Stop: 04/24/18 16:01 Docusate Sodium (Colace) 100 mg PO BID [facility] PRN Reason: Protocol Stop: 04/22/18 21:01 Last Admin: 10/23/17 08:23 Dose: 100 mg Enoxaparin Sodium (Lovenox) 40 mg SQ 0600 [facility] PRN Reason: Protocol Stop: 04/23/18 06:01 Last Admin: 10/23/17 05:23 Dose: 40 mg Famotidine (Pepcid) 20 mg PO BID [facility] Stop: 04/22/18 21:01 Last Admin: 10/23/17 08:21 Dose: 20 mg Furosemide (Lasix) 40 mg IVP BIDDIURETIC MAC Stop: 04/22/18 17:01 Last Admin: 10/23/17 08:21 Dose: 40 mg Lisinopril (Zestril) 20 mg PO DAILY MAC PRN Reason: Protocol Stop: 04/23/18 09:01 Last Admin: 10/23/17 08:22 Dose: 20 mg Naloxone HCl (Narcan) 0.4 mg IVP Q2MIN PRN PRN Reason: SEE COMMENTS Stop: 04/22/18 09:43 Paroxetine HCl (Paxil) 10 mg PO DAILY [facility] Stop: 04/23/18 09:01 Last Admin: 10/23/17 08:23 Dose: Not Given - Imaging and Cardiology Echo: report reviewed - EKG Interpretation EKG results cardiology: normal ECG - VTE Documentation of Mechanical Device: Intermittent pneumatic compression device Consult Discharge Plan - Plan Referrals: Lara Gordon, PERIPATOLOGIST [Primary Care Provider] -
--- NOTE | 2017-10-23 11:44 | Internal Med Progress Note ---
Date of Encounter: 10/23/17 Time of Encounter: 11:38 - Assessment and plan (1) Atrial fibrillation with RVR Current Visit: Yes Status: Acute Assessment and plan: Heart rate is better controlled. Remains in A. fib. Does not want to be on anticoagulation. Continue Cardizem. (2) CHF exacerbation Current Visit: Yes Status: Acute Assessment and plan: Improving with IV Lasix. Will continue Lasix for another day intravenously and plan for discharge tomorrow if she continues to do better. 2-D echocardiogram shows normal ejection fraction 55%. Diastolic function unable to weigh properly interpreted. Indeterminate. Mild pulmonary hypertension. Continue O2 supplementation. Will evaluate for home oxygen. Qualifiers: Heart failure type: unspecified Qualified Code(s): I50.9 - Heart failure, unspecified (3) Hypertension Current Visit: Yes Status: Chronic Assessment and plan: Blood pressure is well controlled at this time Qualifiers: Hypertension type: essential hypertension Qualified Code(s): I10 - Essential (primary) hypertension (4) DVT prophylaxis Current Visit: Yes Status: Acute Assessment and plan: On subcutaneous Lovenox - Time Spent With Patient Total time spent is greater than 50% in coordination of care (as documented) at patient's floor/unit and/or counseling patient: - Subjective Interval history: Patient feeling better today. Shortness of breath improving. Denies any chest pain. No palpitations. No nausea or vomiting at this time. - Constitutional Vitals: Temp Pulse Resp BP Pulse Ox 98.0 F 76 16 119/73 95 10/23/17 10:41 10/23/17 10:41 10/23/17 10:41 10/23/17 10:41 10/23/17 10:41 General appearance: Present: cooperative, A&O X 3, morbidly obese, pleasant, answers questions appropriately - Neck Neck exam general surgery: Present: supple, trachea midline. Absent: lymphadenopathy - Respiratory Respiratory exam: Present: CTAB. Absent: accessory muscle use, rales, rhonchi, wheezes - Cardiovascular Cardiovascular exam: Present: irregular rhythm, +S1, +S2. Absent: diastolic murmur, gallop, rubs, systolic murmur - GI/Abdominal GI/Abdominal exam: Present: normal bowel sounds, soft, no peritoneal signs. Absent: distended, tenderness - Extremities Exam Extremities exam: Present: warm, radial pulses palpable and symmetrical. Absent : calf tenderness, cyanotic, pedal edema - Skin Skin exam: Present: dry, intact Internal Medicine: Result - Labs CBC & Chem 7: 10/22/17 05:04 10/22/17 05:04 Labs: Urine 10/22/17 Range/Units 16:00 Urine Color Yellow (Yellow) Urine Clarity Clear (Clear) Urine pH 6.0 (5.0-8.0) pH Units Ur Specific [place] 1.012 (1.010-1.025) Urine Protein Negative (Neg-Trace) mg/dL Urine Glucose (UA) Normal (Normal) mg/dL - ABG Interpretation ABG results: PT/INR, D-dimer PT 13.9 Seconds (9.4-12.1) H 10/21/17 07:43 - Impressions Impressions Echocardiogram 10/22/17 15:39 Impressions: LVEF 55%. Mild concentric left ventricular hypertrophy. Indeterminate diastolic function. Definity echo contrast was used. RV appears dilated. Function is low normal. Bi-atrial enlargement. Mild mitral regurgitation. Mild aortic stenosis. Moderate tricuspid regurgitation. At least mild pulmonary hypertension by TR gradient. IVC is not visualized to estimate RVSP. Left Ventricular Wall Motion: Rest Echo Findings All wall segments showed normal motion. Findings: Study Quality * Technically adequate exam. ECG Findings * Atrial fibrillation. Left Ventricle * LVEF 55%. * Normal LV chamber size. * Mild concentric left ventricular hypertrophy. * Indeterminate diastolic function. * Definity echo contrast was used. Right Ventricle * RV appears dilated. Function is low normal. Left Atrium * Severely dilated left atrium. Right Atrium * Moderately dilated right atrium. Mitral Valve * Moderate mitral annular calcification * Normal mitral valve structure. * No mitral stenosis. * Mild mitral regurgitation. Aortic Valve * No aortic regurgitation. * Aortic valve not well visualized. * Mild aortic stenosis. Tricuspid Valve * Tricuspid valve not well visualized. * Moderate tricuspid regurgitation. Pulmonic Valve * Pulmonic valve is not well visualized. * No pulmonic stenosis. * No pulmonic regurgitation. Pulmonary Artery * Pulmonary artery not well visualized. Aorta * Not optimally visualized. - VTE Documentation of Mechanical Device: Intermittent pneumatic compression device Consult Discharge Plan - Plan Referrals: Lara Gordon, JUVENILE COUNSELOR [Primary Care Provider] -
[2017-10-23] MEDS: Diltiazem CD (24hr) 180 MG CAPSULE PO SCH (16:26)
[2017-10-23] MEDS: *HR* Enoxaparin 100 MG/ML SYRINGE SQ SCH (18:17)
[2017-10-24] MEDS: *HR* Enoxaparin 100 MG/ML SYRINGE SQ SCH (05:36)
[2017-10-24] MEDS: Aspirin Enteric Coated 325 MG Tablet PO SCH (09:54)
[2017-10-24] MEDS: Furosemide 40 MG/4 ML VIAL IVP SCH (09:56)
[2017-10-24] MEDS: Lisinopril 20 MG TABLET PO SCH (09:57)
[2017-10-24] MEDS: Diltiazem CD (24hr) 180 MG CAPSULE PO SCH (09:57)
[2017-10-24] MEDS: Famotidine 20 MG TABLET PO SCH (09:57)
[2017-10-24] MEDS: Aspirin Enteric Coated 81 MG Tablet PO SCH (09:57)
--- NOTE | 2017-10-24 13:07 | Internal Med Progress Note ---
Date of Encounter: 10/24/17 Time of Encounter: 13:06 - Assessment and plan (1) Atrial fibrillation with RVR Current Visit: Yes Status: Acute Assessment and plan: Heart rate elevated at this time. Average heart rate has been at 100/m over the past 24 hours. We will continue to monitor for now. Continue Cardizem 180 mg per day. Will start anticoagulation with Xarelto (2) CHF exacerbation Current Visit: Yes Status: Acute Assessment and plan: 2-D echocardiogram shows normal EF of 55%. Indeterminate diastolic function. Mild pulmonary hypertension. Patient has had good urine output. We will transition to oral Lasix. Qualifiers: Heart failure type: diastolic Qualified Code(s): I50.33 - Acute on chronic diastolic (congestive) heart failure (3) Hypertension Current Visit: Yes Status: Chronic Assessment and plan: Blood pressure is well controlled. Qualifiers: Hypertension type: essential hypertension Qualified Code(s): I10 - Essential (primary) hypertension (4) Cellulitis Current Visit: Yes Status: Acute Assessment and plan: Mild cellulitis at right wrist related to IV catheter insertion. Will place patient on cephalexin. Warm compresses. Qualifiers: Site of cellulitis: extremity Site of cellulitis of extremity: upper extremity Laterality: right Qualified Code(s): L03.113 - Cellulitis of right upper limb (5) DVT prophylaxis Current Visit: Yes Status: Acute Assessment and plan: Continue Xarelto - Time Spent With Patient Total time spent is greater than 50% in coordination of care (as documented) at patient's floor/unit and/or counseling patient: - Subjective Interval history: Patient is awake and alert. Lying down in bed. No shortness of breath. Right wrist IV went bad and patient developed some swelling and erythema just above it. No fever or chills reported. Patient is currently willing to take anticoagulation. She however wants to be on a medication that she can take once a day and does not want to be on Coumadin. - Constitutional Vitals: Temp Pulse Resp BP Pulse Ox 98.1 F 61 18 127/74 93 10/24/17 10:54 10/24/17 10:54 10/24/17 10:54 10/24/17 10:54 10/24/17 10:54 General appearance: Present: cooperative, A&O X 3, morbidly obese, pleasant, answers questions appropriately - Eye Additional comments: Left corneal opacity - Respiratory Respiratory exam: Present: decreased breath sounds (At bases). Absent: accessory muscle use, rales, rhonchi, wheezes - Cardiovascular Cardiovascular exam: Present: irregular rhythm, +S1, +S2, tachycardia. Absent: diastolic murmur, gallop, rubs, systolic murmur - GI/Abdominal GI/Abdominal exam: Present: normal bowel sounds, soft, no peritoneal signs. Absent: distended, tenderness - Extremities Exam Extremities exam: Present: pedal edema (Much improved since admission), warm, radial pulses palpable and symmetrical. Absent: calf tenderness, cyanotic - Neurological Exam Neurological exam: Present: oriented X3, no focal deficits. Absent: facial droop, speech deficit - Skin Skin exam: Present: dry, erythema (Small swelling at Right wrist with mild tenderness near previous IV site.), intact Internal Medicine: Result - Labs CBC & Chem 7: 10/22/17 05:04 10/22/17 05:04 - ABG Interpretation ABG results: PT/INR, D-dimer PT 13.9 Seconds (9.4-12.1) H 10/21/17 07:43 - VTE Documentation of Mechanical Device: Intermittent pneumatic compression device Consult Discharge Plan - Plan Referrals: Lara Gordon, [employer]PRESENTATIVE [Primary Care Provider] -
[2017-10-24] MEDS: cephALEXin 500 MG CAPSULE PO SCH ×2 (13:26→21:02)
[2017-10-24] MEDS ORDERED: Furosemide 40 MG TABLET PO ONE (13:32)
[2017-10-24] MEDS ORDERED: *HR* Rivaroxaban 10 MG TABLET PO SCH (17:00)
[2017-10-24] MEDS: Furosemide 40 MG TABLET PO SCH (17:44)
[2017-10-24] MEDS ORDERED: Saline Nasal Spray 44 ML BOTTLE NS PRN (17:49)
[2017-10-25 07:07] VITALS: BP 118/79
[2017-10-25] MEDS ORDERED: Famotidine 20 MG TABLET PO SCH (09:00)
[2017-10-25] MEDS ORDERED: Aspirin Enteric Coated 81 MG Tablet PO SCH (09:00)
[2017-10-25] MEDS: cephALEXin 500 MG CAPSULE PO SCH (09:24)
[2017-10-25] MEDS: Diltiazem CD (24hr) 180 MG CAPSULE PO SCH (09:24)
[2017-10-25] MEDS: Aspirin Enteric Coated 81 MG Tablet PO SCH (09:24)
[2017-10-25] MEDS: Lisinopril 20 MG TABLET PO SCH (09:24)
[2017-10-25] MEDS: Furosemide 40 MG TABLET PO SCH (09:25)
--- NOTE | 2017-10-25 10:06 | Discharge Summary ---
- NOTES TO OUTPATIENT PROVIDER Notes to Outpatient Provider: Patient admitted with acute CHF and rapid A. fib. Treated with Cardizem drip intravenously and then transition to oral Cardizem. Also treated with intravenous Lasix. Now doing much better and stable to be discharged home. Does require home oxygen. Arranging for home health as patient does not want to go to a rehabilitation facility. Will be on anticoagulation with Xarelto. Date of Encounter: 10/25/17 Time of Encounter: 10:01 - Discharge Diagnosis (1) Atrial fibrillation with RVR Priority: Primary Status: Acute (2) CHF exacerbation Priority: Secondary Status: Acute Qualifiers: Heart failure type: diastolic Qualified Code(s): I50.33 - Acute on chronic diastolic (congestive) heart failure (3) Hypertension Priority: Secondary Status: Chronic Qualifiers: Hypertension type: essential hypertension Qualified Code(s): I10 - Essential (primary) hypertension (4) Cellulitis Priority: Secondary Status: Acute Qualifiers: Site of cellulitis: extremity Site of cellulitis of extremity: upper extremity Laterality: right Qualified Code(s): L03.113 - Cellulitis of right upper limb (5) DVT prophylaxis Priority: Secondary Status: Acute Hospital course: Ms. Vasquez is a 77 year old female patient with history of uterine cancer, hypertension and hyperlipidemia who was admitted with acute CHF and rapid A. fib. She was treated with Cardizem drip intravenously and then transitioned to oral Cardizem. She was treated with intravenous Lasix for acute CHF. She is now doing much better and stable to be discharged home. She does require home oxygen due to CHF. She was evaluated by physical therapy and recommended placement to skilled rehabilitation. However she wishes to go home with home health instead. She was evaluated by cardiology and recommended anticoagulation. Although hesitant initially, she agreed to take Xarelto once a day for anticoagulation and will follow up with cardiology for further recommendations. She will be discharged home on to 40 mg of oral Cardizem for her A. fib. She will also be discharged on 40 mg of Lasix twice daily. Patient also developed some swelling and erythema in her right forearm at site of peripheral venous catheter. She was treated for cellulitis with cephalexin. She will complete a short antibiotic course for this. Discharge discussed with: patient, family, nurse - Time Spent with Patient Total time spent providing and/or coordinating discharge services: Greater than 30 minutes (40 min) - Discharge Medications Prescriptions: Aspirin Enteric Coated [Aspirin EC] 81 mg PO DAILY #30 tablet. cephALEXin [Keflex] 500 mg PO BID #10 capsule Diltiazem CD (24hr) [Cardizem CD] 240 mg PO DAILY #30 cap.er.24h Furosemide [Lasix] 40 mg PO BIDDIURETIC #60 tablet Rivaroxaban [Xarelto] 20 mg PO 1700 #60 tablet Saline Nasal [place] [[place] Nasal [place]] 2 spray NS QID PRN #1 bottle PRN Reason: Congestion Home Medications: Lisinopril [Zestril] 20 mg PO DAILY 10/27/16 [History] raNITIdine HCl [Ranitidine HCl] 150 mg PO BID 10/27/16 [History] Docusate [Colace] 100 mg PO BID #30 capsule 10/30/16 [Rx] Paroxetine HCl [Paxil] 10 mg PO DAILY 10/21/17 [History] Aspirin Enteric Coated [Aspirin EC] 81 mg PO DAILY #30 tablet. 10/25/17 [Rx] Diltiazem CD (24hr) [Cardizem CD] 240 mg PO DAILY #30 cap.er.24h 10/25/17 [Rx] Furosemide [Lasix] 40 mg PO BIDDIURETIC #60 tablet 10/25/17 [Rx] Rivaroxaban [Xarelto] 20 mg PO 1700 #60 tablet 10/25/17 [Rx] Saline Nasal [place] [[place] Nasal [place]] 2 spray NS QID PRN #1 bottle 10/25/17 [Rx ] cephALEXin [Keflex] 500 mg PO BID #10 capsule 10/25/17 [Rx] Allergies/Adverse Reactions: 3 Allergy/AdvReac Type Severity Reaction Status Date / Time No Known Allergies Allergy Verified 10/21/17 09:20 Date of admission: 10/21/17 11:45 Primary care physician: Lara Gordon CNP Consults: 10/23/17 13:19 Consult to Occupational Therapy [CONS] Routine Comment: Evaluate, develop and implement POC Reason for Consult: possible need for HH upon discharge Does patient have active BEDREST order?: No Is patient medically & hemodynamically stable?: Yes Consult to Physical Therapy [CONS] Routine Comment: Evaluate, develop and implement POC Reason for Consult: possible need for HH upon discharge Does patient have active BEDREST order?: No Is patient medically & hemodynamically stable?: Yes Discharging clinician: Keila Rizvi Anticipated date of discharge: 10/25/17 - Constitutional Vitals: Temp Pulse Resp BP Pulse Ox 97.8 F 86 16 118/79 98 10/25/17 07:02 10/25/17 07:02 10/25/17 07:02 10/25/17 07:02 10/25/17 07:02 General appearance: Present: cooperative, A&O X 3, morbidly obese, pleasant, answers questions appropriately - Eye Additional comments: Corneal opacity left eye - Respiratory Respiratory exam: Present: CTAB. Absent: accessory muscle use, rales, rhonchi, wheezes - Cardiovascular Cardiovascular exam: Present: irregular rhythm, +S1, +S2, tachycardia. Absent: diastolic murmur, gallop, rubs, systolic murmur - GI/Abdominal GI/Abdominal exam: Present: normal bowel sounds, soft, no peritoneal signs. Absent: distended, tenderness - Extremities Exam Extremities exam: Present: pedal edema, warm, radial pulses palpable and symmetrical. Absent: calf tenderness, cyanotic - Neurological Exam Neurological exam: Present: alert, oriented X3, no focal deficits. Absent: facial droop, speech deficit - Skin Skin exam: Present: dry, intact - Patient Status Disposition: Home Health Service Condition: Fair Functional capacity at discharge: uses cane/walker Overall status at discharge: patient is progressing back to baseline - Discharge Instructions Instructions: Heart Failure (DC), Atrial Fibrillation (DC), Cellulitis (DC) Follow Up With: Shantanu Verde MD [Partnered Physician] - (1 week, Cardio office will call patient for f/u appts.) Lara Gordon CNP [Primary Care Provider] - 11/03/17 9:00 am (in 1-2 weeks) - Diet and Activity Activity: increase activity as tolerated, wear oxygen at all times Diet: advance to your usual diet, low fat, low cholesterol, low salt diet - VTE Documentation of Mechanical Device: Intermittent pneumatic compression device
--- NOTE | 2017-10-25 10:08 | Physician Discharge Referral ---
Home Health/Hosp Referral Info Transfer to: Home Health Provider in Charge Post Discharge: PCP - Diagnosis (1) Atrial fibrillation with RVR Priority: Primary Status: Acute (2) CHF exacerbation Priority: Secondary Status: Acute (3) Hypertension Priority: Secondary Status: Chronic (4) Cellulitis Priority: Secondary Status: Acute (5) DVT prophylaxis Priority: Secondary Status: Acute - Respiratory Orders Oxygen / L per min (2) Smoking Cessation: Smoking cessation has been advised. For more information, call the [place] [employer] [facility] Quit Line at [phone]-QNPJ-NOW. - Diet/Nutrition Diet/Nutrition Orders: Cardiac - Activity Activity Orders: Walker - Services Needed Following services are medically necessary services: Physical Therapy, Occupational Therapy Home Care Orders: CBC, BMP in 1 week - Transfer Medications Prescriptions: Aspirin Enteric Coated [Aspirin EC] 81 mg PO DAILY #30 tablet. cephALEXin [Keflex] 500 mg PO BID #10 capsule Diltiazem CD (24hr) [Cardizem CD] 240 mg PO DAILY #30 cap.er.24h Furosemide [Lasix] 40 mg PO BIDDIURETIC #60 tablet Rivaroxaban [Xarelto] 20 mg PO 1700 #60 tablet Saline Nasal [place] [[place] Nasal [place]] 2 spray NS QID PRN #1 bottle PRN Reason: Congestion Home Medications: Lisinopril [Zestril] 20 mg PO DAILY 10/27/16 [History] raNITIdine HCl [Ranitidine HCl] 150 mg PO BID 10/27/16 [History] Docusate [Colace] 100 mg PO BID #30 capsule 10/30/16 [Rx] Paroxetine HCl [Paxil] 10 mg PO DAILY 10/21/17 [History] Aspirin Enteric Coated [Aspirin EC] 81 mg PO DAILY #30 tablet. 10/25/17 [Rx] Diltiazem CD (24hr) [Cardizem CD] 240 mg PO DAILY #30 cap.er.24h 10/25/17 [Rx] Furosemide [Lasix] 40 mg PO BIDDIURETIC #60 tablet 10/25/17 [Rx] Rivaroxaban [Xarelto] 20 mg PO 1700 #60 tablet 10/25/17 [Rx] Saline Nasal [place] [[place] Nasal [place]] 2 spray NS QID PRN #1 bottle 10/25/17 [Rx ] cephALEXin [Keflex] 500 mg PO BID #10 capsule 10/25/17 [Rx] Allergies/Adverse Reactions: 3 Allergy/AdvReac Type Severity Reaction Status Date / Time No Known Allergies Allergy Verified 10/21/17 09:20 Certification: Further, I certify that my clinical findings support that this patient is homebound (i.e. absences from home require considerable and taxing effort and are for medical reasons or [employer] services or infrequently or short duration when for other reasons) because: Homebound Reason: Patient requires assistance of a person or device to safely leave home, Severity of cardiac or pulmonary status limits activity tolerance Attestation: My signature below is to certify that this patient is under my care and that I, or nurse practitioner, or a physician's assistant speech language pathologist working with me, has a face-to -face encounter with this patient.
[2017-10-26] MEDS ORDERED: Diltiazem CD (24hr) 240 MG CAPSULE PO SCH (09:00)
== END 2017-10-25 12:30 | disposition home health service (06) | DRG 308 ==
LOC: 2ANU 07:05 → EMEROO 07:05 → SUATTDRO 11:45 → 2ANU 12:00
PROVIDERS: ADMIT General Practice; ATTEND Internal Medicine

== ENCOUNTER 2021-06-16 19:23 | Observation (INO) ==
[2021-06-17] MEDS ORDERED: Isovue-370 500 ML BOTTLE IVP ONE (01:45)
[2021-06-17 02:13] LABS: Basophils % 0.2 %; Eosinophils # 0.1 K/mcL (0.0-0.6); Eosinophils % 1.2 %; Hematocrit 41.4 % (35.3-44.9); Hemoglobin 12.5 g/dL (11.5-15.4); Immature Granulocytes % 0.3 % (0-4); Lymphocytes # 1.4 K/mcL (0.6-4.6); Lymphocytes % 15.9 %; Mean Corpuscular HGB Conc 30.2 g/dL (31.6-35.5); Mean Corpuscular Hemoglobin 25.7 pg (28.0-33.3); Mean Platelet Volume 10.1 fL (9.4-12.4); Monocytes # 0.7 K/mcL (0.0-1.3); Neutrophils # 6.7 K/mcL (1.6-8.9); Platelet Count 198 K/mcL (140-400); Red Blood Count 4.87 M/mcL (3.82-4.97); Red Cell Distribution Width 18.5 % (11.5-14.5); Segmented Neutrophils % 74.4 %
[2021-06-17 02:21] LABS: INR 1.1; Prothrombin Time 12.5 Seconds (9.4-12.1)
[2021-06-17 02:23] LABS: Activated Partial Thrombo Time 37.6 Seconds (26.0-36.0)
[2021-06-17 02:33] LABS: BUN/Creatinine Ratio 24 (6-26); Blood Urea Nitrogen 18 mg/dL (8-23); Calcium 10.1 mg/dL (8.6-10.3); Carbon Dioxide 30 mEq/L (23-29); Chloride 103 mEq/L (98-107); Glucose 104 mg/dL (70-105); Lipase 26 Units/L (11-82); Osmolality,Calculated 288 (280-300); Potassium 3.9 mEq/L (3.5-5.1); Sodium 138 mEq/L (136-145); eGFR For African Americans > 60 (> 60); eGFR For Non-African Americans > 60 (> 60)
[2021-06-17] MEDS ORDERED: Melatonin 3 MG TABLET PO PRN (04:13)
[2021-06-17] MEDS ORDERED: Ondansetron 4 MG/2 ML VIAL IVP PRN (04:13)
[2021-06-17] MEDS ORDERED: Naloxone 0.4 MG/ML INJ IVP PRN (04:13)
[2021-06-17] MEDS ORDERED: 0.9 % Sodium Chloride 1,000 ML IVC SCH (04:15)
[2021-06-17 13:43] LABS: Hematocrit 36.4 % (35.3-44.9); Hemoglobin 11.2 g/dL (11.5-15.4)
[2021-06-17] MEDS: Pantoprazole 40 MG VIAL IVP SCH (17:19)
[2021-06-17 21:19] LABS: Hematocrit 36.4 % (35.3-44.9); Hemoglobin 11.3 g/dL (11.5-15.4)
[2021-06-18 02:27] LABS: Hematocrit 34.6 % (35.3-44.9); Hemoglobin 10.7 g/dL (11.5-15.4); Mean Corpuscular HGB Conc 30.9 g/dL (31.6-35.5); Mean Corpuscular Hemoglobin 25.6 pg (28.0-33.3); Mean Corpuscular Volume 82.8 fL (83.0-100.0); Platelet Count 145 K/mcL (140-400); Red Blood Count 4.18 M/mcL (3.82-4.97)
[2021-06-18 02:43] LABS: BUN/Creatinine Ratio 18 (6-26); Blood Urea Nitrogen 11 mg/dL (8-23); Calcium 9.1 mg/dL (8.6-10.3); Carbon Dioxide 29 mEq/L (23-29); Chloride 103 mEq/L (98-107); Glucose 72 mg/dL (70-105); Osmolality,Calculated 284 (280-300); Potassium 4.6 mEq/L (3.5-5.1); Sodium 138 mEq/L (136-145); eGFR For African Americans > 60 (> 60); eGFR For Non-African Americans > 60 (> 60)
[2021-06-18] MEDS: Pantoprazole 40 MG VIAL IVP SCH ×3 (06:28→18:15)
[2021-06-18] MEDS ORDERED: *HR* Propofol 200 MG/20 ML VIAL IVP ONE (13:21)
[2021-06-18] MEDS ORDERED: Lidocaine -MPF 2% 5 ML VIAL ONE (13:21)
[2021-06-18] MEDS ORDERED: Water for inj. (sterile) 20 ML ONE (13:50)
[2021-06-18] MEDS ORDERED: *HR* EPINEPHrine 1 MG/10 ML SYRINGE INTRATRACH PRN (14:10)
[2021-06-19] MEDS: Pantoprazole 40 MG VIAL IVP SCH (05:20)
[2021-06-19 07:39] VITALS: BP 133/94; PULSE 82; TEMP 97.5; O2SAT 90
[2021-06-19] MEDS ORDERED: DilTIAZem CD (24hr) 240 MG CAP.ER.24H PO SCH (09:00)
[2021-06-19] MEDS ORDERED: *HR* EPINEPHrine 1 MG/10 ML SYRINGE ONE (13:16)
== END 2021-06-19 14:02 | disposition home or self-care (01) ==
LOC: EMEROOARM 19:23 → 3ANU 19:23 → SUATTDRO 06-17 04:34 → 3ANU 06-17 05:22
PROVIDERS: ADMIT Internal Medicine; ATTEND Internal Medicine

== ENCOUNTER 2021-07-06 11:20 | Inpatient (IN) ==
[2021-07-06] MEDS ORDERED: 0.9 % Sodium Chloride 500 ML IV ONE (11:52)
[2021-07-06] MEDS ORDERED: Piperacillin/Tazobactam 3.375 GM in 0.9 % Sodium Chloride Mini Bag 100 ML IVPB ONE (13:34)
[2021-07-06 13:36] LABS: Basophils % 0.6 %; Hematocrit 40.5 % (35.3-44.9); Immature Granulocytes % 3.9 % (0-4); Lymphocytes # 0.3 K/mcL (0.6-4.6); Lymphocytes % 4.2 %; Mean Corpuscular HGB Conc 29.6 g/dL (31.6-35.5); Mean Corpuscular Hemoglobin 25.2 pg (28.0-33.3); Mean Corpuscular Volume 85.1 fL (83.0-100.0); Mean Platelet Volume 9.4 fL (9.4-12.4); Monocytes # 0.6 K/mcL (0.0-1.3); Monocytes % 9.6 %; Neutrophils # 5.1 K/mcL (1.6-8.9); Nucleated Red Blood Cells 9.5 /100 WBC (0); Platelet Count 245 K/mcL (140-400); Red Blood Count 4.76 M/mcL (3.82-4.97); Segmented Neutrophils % 81.7 %; White Blood Count 6.2 K/mcL (4.3-11.1)
[2021-07-06 13:45] LABS: Adenovirus Not Detected (Not Detect); Bordetella Pertussis Not Detected (Not Detect); Chlamydophila pneumoniae Not Detected (Not Detect); Coronavirus 229E Not Detected (Not Detect); Coronavirus HKU1 Not Detected (Not Detect); Coronavirus NL63 Not Detected (Not Detect); Coronavirus OC43 Not Detected (Not Detect); Human Metapneumovirus Not Detected (Not Detect); Human Rhinovirus/Enterovirus Not Detected (Not Detect); Influenza A Subtype 2009 H1 Not Detected (Not Detect); Influenza B Not Detected (Not Detect); Mycoplasma pneumoniae Not Detected (Not Detect); Parainfluenza Virus 1 Not Detected (Not Detect); Parainfluenza Virus 2 Not Detected (Not Detect); Parainfluenza Virus 3 Not Detected (Not Detect); Parainfluenza Virus 4 Not Detected (Not Detect); Respiratory Syncytial Virus Not Detected (Not Detect)
[2021-07-06 13:47] LABS: SARS-CoV-2 DETECTED (Not Detect)
[2021-07-06] MEDS ORDERED: 0.9 % Sodium Chloride 1,000 ML IV ONE (13:53)
[2021-07-06 13:58] LABS: Alanine Aminotransferase 38 Units/L (7-52); Albumin 3.5 g/dL (3.5-5.7); Albumin/Globulin Ratio 1.3 (1.1-2.2); Alkaline Phosphatase 105 Units/L (34-104); Aspartate Amino Transferase 64 Units/L (13-39); BUN/Creatinine Ratio 20 (6-26); Bilirubin,Total 1.4 mg/dL (0.3-1.0); Blood Urea Nitrogen 41 mg/dL (8-23); Calcium 9.1 mg/dL (8.6-10.3); Carbon Dioxide 30 mEq/L (23-29); Chloride 90 mEq/L (98-107); Globulin 2.8 g/dL (2.4-3.5); Glucose 121 mg/dL (70-105); Osmolality,Calculated 285 (280-300); Potassium 4.5 mEq/L (3.5-5.1); Sodium 132 mEq/L (136-145); Total Protein 6.3 g/dL (6.4-8.9); Troponin I < 0.03 ng/mL (< 0.04); eGFR For African Americans 28 (> 60); eGFR For Non-African Americans 23 (> 60)
[2021-07-06] MEDS ORDERED: Vancomycin 1,250 MG/262.5 ML IV.SOLN IVPB ONE (14:00)
[2021-07-06] MEDS ORDERED: Acetaminophen 325 MG TABLET PO PRN (14:28)
[2021-07-06] MEDS ORDERED: Ondansetron 4 MG/2 ML VIAL IVP PRN (14:28)
[2021-07-06] MEDS ORDERED: Naloxone 0.4 MG/ML INJ IVP PRN (14:28)
[2021-07-06 16:15] LABS: Creatine Kinase 45 Units/L (30-223)
[2021-07-06] MEDS: *HR* Metoprolol 5 MG/5 ML VIAL IVP PRN (16:49)
[2021-07-06 17:31] LABS: ABG Base Excess 3 mEq/L (-2 to 3); ABG HCO3 31 mEq/L (21-27); ABG Oxygen Saturation 92 % (95-98); ABG PCO2 66 mmHg (35-45); ABG PH 7.29 pH Units (7.32-7.45); ABG PO2 74 mmHg (85-104); ABG TCO2 33 mEq/L (20-26); Blood Gas VT 400 cc
[2021-07-06] MEDS ORDERED: Morphine Sulfate 2 MG/ML SYRINGE IVP PRN (18:33)
[2021-07-06] MEDS ORDERED: *HR* LORazepam 2 MG/ML VIAL IVP PRN (18:34)
[2021-07-06 19:07] LABS: Bacteria,Urine Few per hpf (None-Few); Bilirubin,Urine Small (Negative); Blood,Urine Small (Negative); Clarity,Urine Ex.Turbid (Clear); Color,Urine Dark-Yellow (Yellow); Glucose,Urine (UA) Normal (Normal); Hyaline Casts,Urine Moderate per lpf (None Seen); Ketones,Urine Negative (Negative); Leukocyte Esterase,Urine Negative (Negative); Mucus,Urine Few per lpf (None-Few); Nitrite,Urine Negative (Negative); Other Crystals,Urine Present per hpf; PH,Urine 5.5 pH Units (5.0-8.0); Protein,Urine 70 mg/dL (Neg-Trace); RBC,Urine 30-50 per hpf (0-3); Specific Gravity,Urine 1.026 (1.010-1.025); Squamous Epithelial Cell,Urine Moderate per hpf (None-Few); WBC,Urine 15-30 per hpf (0-3)
[2021-07-06] MEDS: Dexamethasone Sodium Phos/PF 10 MG/ML VIAL IVP SCH (19:20)
[2021-07-07] MEDS ORDERED: *HR* LORazepam 2 MG/ML VIAL IVP ONE (00:55)
[2021-07-07 04:47] LABS: Basophils % 0.3 %; Hematocrit 39.2 % (35.3-44.9); Immature Granulocytes % 1.6 % (0-4); Lymphocytes # 0.2 K/mcL (0.6-4.6); Lymphocytes % 2.2 %; Mean Corpuscular HGB Conc 30.6 g/dL (31.6-35.5); Mean Corpuscular Hemoglobin 25.8 pg (28.0-33.3); Mean Corpuscular Volume 84.1 fL (83.0-100.0); Mean Platelet Volume 9.5 fL (9.4-12.4); Monocytes # 0.4 K/mcL (0.0-1.3); Neutrophils # 8.9 K/mcL (1.6-8.9); Nucleated Red Blood Cells 5.6 /100 WBC (0); Platelet Count 261 K/mcL (140-400); Red Blood Count 4.66 M/mcL (3.82-4.97); Red Cell Distribution Width 17.3 % (11.5-14.5); Segmented Neutrophils % 91.9 %
[2021-07-07 04:53] LABS: White Blood Count 9.7 K/mcL (4.3-11.1)
[2021-07-07 05:11] LABS: Calcium 8.3 mg/dL (8.6-10.3); Potassium 5.1 mEq/L (3.5-5.1)
[2021-07-07] MEDS: *HR* Enoxaparin 30 MG/0.3 ML SYRINGE SQ SCH (05:18)
[2021-07-07] MEDS ORDERED: Furosemide 40 MG/4 ML VIAL IVP ONE (07:14)
[2021-07-07 07:56] LABS: ABG Base Excess 3 mEq/L (-2 to 3); ABG HCO3 31 mEq/L (21-27); ABG Oxygen Saturation 90 % (95-98); ABG PCO2 63 mmHg (35-45); ABG PH 7.31 pH Units (7.32-7.45); ABG PO2 66 mmHg (85-104); ABG TCO2 33 mEq/L (20-26)
[2021-07-07] MEDS: *HR* Metoprolol 5 MG/5 ML VIAL IVP PRN (08:12)
[2021-07-07] MEDS: Dexamethasone Sodium Phos/PF 10 MG/ML VIAL IVP SCH (08:17)
[2021-07-07] MEDS: Pantoprazole 40 MG VIAL IVP SCH (08:23)
[2021-07-07] MEDS ORDERED: Dexmedetomidine HCl 400 MCG/100 ML MLS IVC SCH (09:15)
[2021-07-07] MEDS: Dexmedetomidine HCl 400 MCG/100 ML MLS IVC SCH (09:51)
[2021-07-07] MEDS ORDERED: Albumin 25% 25gram/100mL 25 GM/100 ML IV.SOLN IVPB ONE (20:21)
[2021-07-07] MEDS ORDERED: 0.9 % Sodium Chloride 500 ML IVC ONE (20:35)
[2021-07-07] MEDS ORDERED: 0.9 % Sodium Chloride 500 ML ONE (20:41)
[2021-07-07] MEDS ORDERED: Albumin 25% 25gram/100mL 25 GM/100 ML IV.SOLN ONE (20:41)
[2021-07-07] MEDS ORDERED: 0.9 % Sodium Chloride 250 ML ONE (21:06)
[2021-07-07 21:59] LABS: Thyroid Stimulating Hormone 0.819 mcIU/mL (0.340-5.600)
[2021-07-07 23:54] LABS: ABG Base Excess 1 mEq/L (-2 to 3); ABG HCO3 30 mEq/L (21-27); ABG Oxygen Saturation 78 % (95-98); ABG PCO2 70 mmHg (35-45); ABG PH 7.24 pH Units (7.32-7.45); ABG PO2 51 mmHg (85-104); ABG TCO2 32 mEq/L (20-26); Blood Gas Modality AVAPS; Blood Gas VT 450 cc
[2021-07-08 05:59] LABS: ABG Base Excess 2 mEq/L (-2 to 3); ABG HCO3 32 mEq/L (21-27); ABG Oxygen Saturation 98 % (95-98); ABG PCO2 78 mmHg (35-45); ABG PH 7.23 pH Units (7.32-7.45); ABG PO2 125 mmHg (85-104); ABG TCO2 35 mEq/L (20-26); Blood Gas Modality avaps; Blood Gas VT 450 cc
[2021-07-08] MEDS ORDERED: Albumin 25% 25gram/100mL 25 GM/100 ML IV.SOLN IVPB ONE (07:55)
[2021-07-08] MEDS ORDERED: Furosemide 40 MG/4 ML VIAL IVP ONE (07:56)
[2021-07-08] MEDS: Pantoprazole 40 MG VIAL IVP SCH (08:19)
[2021-07-08] MEDS: Dexamethasone Sodium Phos/PF 10 MG/ML VIAL IVP SCH (08:20)
[2021-07-08] MEDS: *HR* Enoxaparin 30 MG/0.3 ML SYRINGE SQ SCH (08:34)
[2021-07-08] MEDS: Dexmedetomidine HCl 400 MCG/100 ML MLS IVC SCH ×2 (09:21→22:53)
[2021-07-08 12:11] LABS: ABG Base Excess 3 mEq/L (-2 to 3); ABG HCO3 32 mEq/L (21-27); ABG Oxygen Saturation 98 % (95-98); ABG PCO2 70 mmHg (35-45); ABG PH 7.26 pH Units (7.32-7.45); ABG PO2 128 mmHg (85-104); ABG TCO2 34 mEq/L (20-26); Blood Gas VT 475 cc
[2021-07-08 15:27] LABS: Hematocrit 38.9 % (35.3-44.9); Hemoglobin 11.2 g/dL (11.5-15.4); Mean Corpuscular HGB Conc 28.8 g/dL (31.6-35.5); Mean Corpuscular Hemoglobin 25.1 pg (28.0-33.3); Mean Platelet Volume 9.4 fL (9.4-12.4); Nucleated Red Blood Cells 4.3 /100 WBC (0); Platelet Count 233 K/mcL (140-400); Red Blood Count 4.47 M/mcL (3.82-4.97); Red Cell Distribution Width 17.7 % (11.5-14.5); White Blood Count 6.1 K/mcL (4.3-11.1)
[2021-07-08 15:48] LABS: Lymphocytes # 0.2 K/mcL (0.6-4.6); Monocytes # 0.4 K/mcL (0.0-1.3); Neutrophils # 5.5 K/mcL (1.6-8.9)
[2021-07-08 15:49] LABS: Anisocytosis 1+ (Not Present); Hypochromasia Present (Not Present); Platelet Estimate Normal (Normal)
[2021-07-08 16:10] LABS: Calcium 8.8 mg/dL (8.6-10.3); Magnesium 2.4 mg/dL (1.6-2.6); Potassium 5.4 mEq/L (3.5-5.1)
[2021-07-09 03:40] LABS: Basophils % 0.2 %; Hematocrit 37.2 % (35.3-44.9); Hemoglobin 10.9 g/dL (11.5-15.4); Immature Granulocytes % 1.6 % (0-4); Lymphocytes # 0.2 K/mcL (0.6-4.6); Lymphocytes % 3.6 %; Mean Corpuscular HGB Conc 29.3 g/dL (31.6-35.5); Mean Corpuscular Hemoglobin 25.6 pg (28.0-33.3); Mean Corpuscular Volume 87.3 fL (83.0-100.0); Mean Platelet Volume 9.3 fL (9.4-12.4); Monocytes # 0.4 K/mcL (0.0-1.3); Monocytes % 5.5 %; Neutrophils # 5.6 K/mcL (1.6-8.9); Nucleated Red Blood Cells 4.1 /100 WBC (0); Platelet Count 240 K/mcL (140-400); Red Blood Count 4.26 M/mcL (3.82-4.97); Red Cell Distribution Width 18.1 % (11.5-14.5); Segmented Neutrophils % 89.1 %; White Blood Count 6.3 K/mcL (4.3-11.1)
[2021-07-09 03:57] LABS: Calcium 8.8 mg/dL (8.6-10.3); Magnesium 2.3 mg/dL (1.6-2.6)
[2021-07-09] MEDS: *HR* Enoxaparin 30 MG/0.3 ML SYRINGE SQ SCH (05:21)
[2021-07-09] MEDS ORDERED: Insulin Human Regular 10 UNIT in 0.9 % Sodium Chloride 10 ML IV ONE (07:14)
[2021-07-09] MEDS ORDERED: *HR* Dextrose 50 % in Water (Syg) 50 ML SYRINGE IVP ONE (07:14)
[2021-07-09] MEDS: Calcium Gluconate 1gm/50mL 1 GM/50 ML BAG IVPB SCH ×2 (08:32→10:49)
[2021-07-09] MEDS: Pantoprazole 40 MG VIAL IVP SCH (08:33)
[2021-07-09] MEDS: Dexamethasone Sodium Phos/PF 10 MG/ML VIAL IVP SCH (09:18)
[2021-07-09 10:00] VITALS: BP 82/42; PULSE 122; TEMP 97.1; O2SAT 96
[2021-07-09] MEDS: *HR* LORazepam 2 MG/ML VIAL IVP PRN ×4 (11:27→13:38)
[2021-07-09] MEDS: *HR* FentaNYL (PF) 100 MCG/2 ML VIAL IVP PRN ×4 (11:28→13:38)
== END 2021-07-09 17:10 | disposition expired | DRG 871 ==
LOC: EMEROOARM 11:20 → 2NNU 14:50 → 2ANU 07-09 09:48
PROVIDERS: ADMIT Pharmacist; ATTEND Pharmacist